=== PATIENT | male | born 1965 | race Hispanic/Latino ===

== ENCOUNTER 2022-09-04 17:39 | Emergency (ER) | payer OTHER ==
--- OUTSIDE RECORDS SUMMARY | 2022-09-04 17:47 | XMS REPORT | Continuity of Care Document ---
:1965 Author Organization [facility] t Address [address] [facility]. [address] [place] [address] Support Name Relationship Address Phone Prashatnh Land Sibling [address] [place] [address] L Aminata Land Sibling [address] [facility] [place] [phone] [place] [address] AMINATA LAND L G [address] [facility] [place] [address] Care Team Providers Name Role Phone Meliton So MD Primary Care Physician DR KITTY VALDOVINOS Attending Clinician Unavailable [email or web address] Attending Clinician Unavailable Meliton So MD Attending Clinician MELITON SO Attending Clinician Unavailable Doctor Unassigned, Pierz Attending Clinician Unavailable Mat Garcia MD Attending Clinician Tiera Aguilar NP Attending Clinician DIXON IRELAND Attending Clinician Unavailable Cecil RIZO Attending Clinician Unavailable Cecil Colleir Attending Clinician LADAN OZUNA Attending Clinician Unavailable Ladan Ozuna MD Attending Clinician [facility] Spec Procedure Attending Clinician Unavailable KENYON ARANA Attending Clinician Unavailable Kenyon Arana MD Attending Clinician , Adc Lab Attending Clinician Unavailable Dixon Ireland MD Attending Clinician RENAE MCKEON Attending Clinician Unavailable MELISSA DAVIS Attending Clinician Unavailable MELISSA DAVIS Attending Clinician Unavailable PRIYA ARAUJO Attending Clinician Unavailable CONSTANTIN CARTER Attending Clinician Unavailable MORALES LANE Attending Clinician Unavailable STEF MOORE Attending Clinician Unavailable CONSTANTIN CARTER Admitting Clinician Unavailable DR KITTY VALDOVINOS Admitting Clinician Unavailable [email or web address] Admitting Clinician Unavailable Cecil RIZO Admitting Clinician Unavailable KENYON ARANA Admitting Clinician Unavailable MORALES LANE Admitting Clinician Unavailable PRIYA ARAUJO Admitting Clinician Unavailable Payers Payer Name Policy Type Policy Number Effective Date Expiration Date Queenie benz [place] [id number] 2019 00:00:00 [place] [id number] 2018 (PPO) 00:00:00 Problems Condition Condition Condition Status Onset Resolution Last Treating Co mments Source Name Details Category Date Date Treatment Clinician Date Chronic Chronic Disease Active Univers pain of pain of 8-10 [place] [facility] 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 4-29 ity of 00:00: [address] NSTEMI NSTEMI Disease Active Univers (non-ST (non-ST 4-29 ity of elevated elevated 00:00: [place] myocardial myocardial 00 Me dical infarction infarction Br anch ) ) Facial Facial Disease Active Univers laceration laceration 4-29 it y of , initial , initial 00:00: [place] s encounter encounter 00 [facility] Financial Financial Disease Active Uni vers difficulti difficulti 7-24 it y of es es 00:00: [address] Branch Syncope, Syncope, Disease Active Unive rs unspecifie unspecifie 7-24 it y of d syncope d [place] Intermitte Intermitte Disease Active 2019- U nivers nt nt 7-17 ity of proptosis[place], [place] Breakthrou Breakthrou Disease Active 2019- U nivers gh seizure gh seizure 7-07 it y of 00:00: [address] Need for Need for Disease Active Unive rs Tdap Tdap 6-10 ity of vaccinatio vaccinatio [place] Medical [place] Mixed Mixed Disease Active Univers dyslipidem dyslipidem 3-19 it y of ia ia 00:00: [place] [facility] Proptosis Proptosis Disease Active Uni vers due to due to 3-17 ity of thyroid thyroid 00:00: [place] disorder disorder 00 Medica l Branch 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 3-17 ity of 00:00: [place] [facility] Pre-operat Pre-operat Disease Active U nivers lainey lainey 3-17 ity of clearance clearance 00:[place] Bradycardi Bradycardi Disease Active U nivers a a 3-17 ity of 00:00: [place] [facility] Prediabete Prediabete Disease Active 2014-05 U nivers s s 2-22 ity of 00:00: [place] [facility] Postablati Postablati Disease Active 2014-05 U nivers ve ve 2-22 ity of hypothyroi hypothyroi 00:[place] dism 00 Medical Branch Pure Pure Disease Active Univers hyperglyce hyperglyce 4-28 it y of ridemia ridemia 00:00: [place] 00 [facility] Allergies, Adverse Reactions, Alerts Allergy Allergy Status Severity Reaction(s) Onset Inactive Treating Comm ents Source Name Type Date Date Clinician NO KNOWN Drug Active Univers ALLERGIE Class ity of S [place] [facility] Social History Social Habit Start Date Stop Date Quantity Comments Source Exposure to Not sure [facility] SARS-CoV-2 (event) [place] [facility] Gender identity [facility]danism [facility] Sexual orientation Method t Hospital Alcohol intake 2022-01-31 2022-01-31 0 /d University of 00:00:00 00:00:00 [place] [facility] Tobacco use and 2022-01-30 2022-01-30 Smokeless Universit y of exposure 00:00:00 00:00:00 tobacco non-user [facility] Sex Ass[birth year] At [birth year] Y[facility]danism 00:00:00 00:00:00 Hospital Smoking Status Start Date Stop Date Source Never Smoker [facility] Tobacco smoking consumption unknown [facility] Medications Ordered Filled Start Stop Current Ordering Indication Dosage Frequency Signature Comments Components Source Medication Medication Date Date Medication? Clinician (SIG) Name Name LEVETIRACET Yes [id number] TAKE 1 Univers AM 1,000 mg 4-03 TABLET BY ity of tablet 00:00: MOUTH IN [place] [address] [facility] MORNING Branch AND IN THE EVENING LEVETIRACET Yes [id number] TAKE 1 Univers AM 1,000 mg 3-07 TABLET BY ity of tablet 00:00: MOUTH IN [place] 00 THE [facility] MORNING Branch AND IN THE EVENING LEVETIRACET Yes [id number] TAKE 1 Univers AM 1,000 mg 3-07 TABLET BY ity of tablet 00:00: MOUTH IN [place] [address] THE [facility] MORNING Branch AND IN THE EVENING LEVOTHYROXI Yes [id number] TAKE 1 Univers NE 200 mcg 3-07 TABLET BY ity of tablet 00:00: MOUTH ONCE [place] 00 DAILY IN [facility] MORNING ATORVASTATI 0 Yes [id number] 40mg TAKE 1 Univers N 40 mg 3-07 TABLET BY ity of tablet 00:00: MOUTH AT [place] [address] BEDTIME [facility] LEVOTHYROXI 0 Yes [id number] TAKE 1 Univers NE 200 mcg 3-07 TABLET BY ity of tablet 00:00: MOUTH ONCE [place] 00 DAILY IN [facility] MORNING ATORVASTATI 0 Yes [id number] 40mg TAKE 1 Univers N 40 mg 3-07 TABLET BY ity of tablet 00:00: MOUTH AT [place] [address] BEDTIME [facility] LEVETIRACET 0 2022- No [id number] TAKE 1 Univers AM 1,000 mg 3-07 04-03 TABLET BY it y of tablet 00:00: 00:00 MOUTH IN [place] 00 :00 THE [facility] MORNING Branch AND IN THE EVENING LEVETIRACET Yes [id number] TAKE 1 Univers AM 1,000 mg 2-06 TABLET BY ity of tablet 00:00: MOUTH IN [place] 00 THE [facility] MORNING Branch AND 1 IN THE EVENING LEVETIRACET 0 2022- No [id number] TAKE 1 Univers AM 1,000 mg 2-06 03-07 TABLET BY it y of tablet 00:00: 00:00 MOUTH IN [place] 00 :00 THE [facility] MORNING Branch AND 1 IN THE EVENING levothyroxi Yes [id number] 200ug Take 1 Univers ne 200 mcg 9-21 tablet by ity of tablet 00:00: mouth [place] 00 every Medical morning. Branch atorvastati 2021-0 Yes [id number] 40mg Take 1 Univers n 40 mg 9-21 tablet by ity of tablet 00:00: mouth at [place] 00 bedtime. Medical Branch levothyroxi 2021-0 Yes [id number] 200ug Take 1 Univers ne 200 mcg 9-21 tablet by ity of tablet 00:00: mouth [place] 00 every Medical morning. Branch atorvastati 2021-0 Yes [id number] 40mg Take 1 Univers n 40 mg 9-21 tablet by ity of tablet 00:00: mouth at [place] 00 bedtime. Medical Branch levothyroxi 2021-0 Yes [id number] 200ug Take 1 Univers ne 200 mcg 9-21 tablet by ity of tablet 00:00: mouth [place] 00 every Medical morning. Branch atorvastati 0 Yes [id number] 40mg Take 1 Univers n 40 mg 9-21 tablet by ity of tablet 00:00: mouth at [place] [address] bedtime. Medical Branch levothyroxi 2021-0 Yes [id number] 200ug Take 1 Univers ne 200 mcg 9-21 tablet by ity of tablet 00:00: mouth [place] 00 every Medical morning. Branch atorvastati 0 Yes [id number] 40mg Take 1 Univers n 40 mg 9-21 tablet by ity of tablet 00:00: mouth at [place] 00 bedtime. Medical Branch levothyroxi 2021-0 2022- No [id number] 200ug Take 1 Univers ne 200 mcg 9-21 03-07 tablet by ity of tablet 00:00: 00:00 mouth [place] 00 :00 every Medical morning. Branch atorvastati 2021-0 2022- No [id number] 40mg Take 1 Univers n 40 mg 9-21 03-07 tablet by ity of tablet 00:00: 00:00 mouth at [place] 00 :00 bedtime. Medical Branch levETIRAcet 2021-0 Yes [id number] 1000mg Take 1 Univers am 1,000 mg 8-16 tablet by ity of tablet 00:00: mouth in [place] 00 the Medical morning Branch and 1 tablet in the evening. levETIRAcet 2021-0 Yes [id number] 1000mg Take 1 Univers am 1,000 mg 8-16 tablet by ity of tablet 00:00: mouth in [place] 00 the Medical morning Branch and 1 tablet in the evening. levETIRAcet 2021-0 Yes [id number] 1000mg Take 1 Univers am 1,000 mg 8-16 tablet by ity of tablet 00:00: mouth in [place] 00 the Medical morning Branch and 1 tablet in the evening. levETIRAcet 2021-0 Yes [id number] 1000mg Take 1 Univers am 1,000 mg 8-16 tablet by ity of tablet 00:00: mouth in [place] 00 the Medical morning Branch and 1 tablet in the evening. levETIRAcet 2021-0 Yes [id number] 1000mg Take 1 Univers am 1,000 mg 8-16 tablet by ity of tablet 00:00: mouth in [place] 00 the Medical morning Branch and 1 tablet in the evening. levETIRAcet 2021-0 2023- No [id number] 1000mg Take 1 Univers am 1,000 mg 8-16 02-06 tablet by it y of tablet 00:00: 00:00 mouth in [place] 00 :00 the Medical morning Branch and 1 tablet in the evening. LEVETIRACET 2021-0 Yes [id number] Take 1 Univers AM 1,000 mg 7-15 tablet by ity of tablet 00:00: mouth [place] 00 twice Medical daily Branch LEVETIRACET 2021-0 Yes [id number] Take 1 Univers AM 1,000 mg 7-15 tablet by ity of tablet 00:00: mouth [place] 00 twice Medical daily Branch LEVETIRACET 2-0 2022- No [id number] Take 1 Univers AM 1,000 mg 7-15 08-16 tablet by it y of tablet 00:00: 00:00 mouth [place] 00 :00 twice Medical daily Branch LEVOTHYROXI 2-0 Yes [id number] TAKE 1 Univers NE 200 mcg 6-23 TABLET BY ity of tablet 00:00: MOUTH IN [place] 00 THE Medical MORNING Branch LEVOTHYROXI 2021-0 Yes [id number] TAKE 1 Univers NE 200 mcg 6-23 TABLET BY ity of tablet 00:00: MOUTH IN [place] 00 THE Medical MORNING Branch LEVOTHYROXI 2021-0 Yes [id number] TAKE 1 Univers NE 200 mcg 6-23 TABLET BY ity of tablet 00:00: MOUTH IN [place] 00 THE Medical MORNING Branch LEVOTHYROXI 2021-0 Yes [id number] TAKE 1 Univers NE 200 mcg 6-23 TABLET BY ity of tablet 00:00: MOUTH IN [place] 00 THE Medical MORNING Branch LEVOTHYROXI 0 Yes [id number] TAKE 1 Univers NE 200 mcg 6-23 TABLET BY ity of tablet 00:00: MOUTH IN [place] 00 THE Medical MORNING Branch LEVOTHYROXI 0 Yes [id number] TAKE 1 Univers NE 200 mcg 6-23 TABLET BY ity of tablet 00:00: MOUTH IN [place] 00 THE Medical MORNING Branch LEVOTHYROXI Yes [id number] TAKE 1 Univers NE 200 mcg 6-23 TABLET BY ity of tablet 00:00: MOUTH IN [place] 00 THE Medical MORNING Branch LEVOTHYROXI 2021-0 2021- No [id number] TAKE 1 Univers NE 200 mcg 6-23 09-21 TABLET BY ity of tablet 00:00: 00:00 MOUTH IN [place] 00 :00 THE Medical MORNING Branch LEVOTHYROXI 2021-0 2021- No [id number] TAKE 1 Univers NE 200 mcg 6-23 09-21 TABLET BY ity of tablet 00:00: 00:00 MOUTH IN [place] 00 :00 THE Medical MORNING Branch LEVETIRACET Yes [id number] Take 1 Univers AM 1,000 mg 6-16 tablet by ity of tablet 00:00: mouth [place] twice Medical daily Branch LEVETIRACET Yes [id number] Take 1 Univers AM 1,000 mg 6-16 tablet by ity of tablet 00:00: mouth [place] 00 twice Medical daily Branch LEVETIRACET 2021-0 2021- No [id number] Take 1 Univers AM 1,000 mg 6-16 07-15 tablet by it y of tablet 00:00: 00:00 [facility] 00 :00 twice Medical daily Branch predniSONE 2021-0 2021- No 2 tablets M ethodi (DELTASONE) 4-29 05-[address] 10 mg 00:00: 04:59 daily, 1 [facility]osp[facility] tablet 00 :00 tablet l daily for 1 wk, then stop LEVETIRACET Yes [id number] Take 1 Univers AM 1,000 mg 4-18 tablet by ity of tablet 00:00: mouth [place] [address] twice Medical daily Branch LEVETIRACET Yes [id number] Take 1 Univers AM 1,000 mg 4-18 tablet by ity of tablet 00:00: mouth [place] 00 twice Medical daily Branch levETIRAcet Yes 1{tbl} Q.5D Take 1 Me thodi am (KEPPRA) 4-[address] 1000 MG 00:00: mouth 2 [facility]osp[facility] tablet 00 (two) l times a day. LEVETIRACET 2021- No [id number] Take 1 Univers AM 1,000 mg 4-18 06-16 tablet by it y of tablet 00:00: 00:00 mouth [place] 00 :00 twice Medical daily Branch LEVETIRACET 2021- No [id number] Take 1 Univers AM 1,000 mg 4-18 04-18 tablet by it y of tablet 00:00: 00:00 mouth [place] 00 :00 twice Medical daily Branch levothyroxi Yes 200ug QD Take 200 M ethodi ne 3-[address] (SYNTHROID) 00:00: mouth [facility] 200 mcg 00 every l tablet morning. LEVETIRACET Yes [id number] 1000mg TAKE 1 Univers AM 1,000 mg 2-02 TABLET BY ity of tablet 00:00: MOUTH 2 [place] 00 (TWO) Medical TIMES Branch DAILY. LEVETIRACET 2021- No [id number] 1000mg TAKE 1 Univers AM 1,000 mg 2-02 04-18 TABLET BY it y of tablet 00:00: 00:00 MOUTH 2 [place] 00 :00 (TWO) Medical TIMES Branch DAILY. sulfamethox 2020-05 Yes [id number] 1{tbl} Take 1 Univers azole-trime 1-04 tablet by ity of thoprim 00:00: mouth 2 [place] (BACTRIM 00 (two) Medical DS) 800-160 times Branch mg per daily. tablet sulfamethox 2020-05 Yes [id number] 1{tbl} Take 1 Univers azole-trime 1-04 tablet by ity of thoprim 00:00: mouth 2 [place] (BACTRIM 00 (two) Medical DS) 800-160 times Branch mg per daily. tablet sulfamethox 2020-05 Yes [id number] 1{tbl} Take 1 Univers azole-trime 1-04 tablet by ity of thoprim 00:00: mouth 2 [place] (BACTRIM 00 (two) Medical DS) 800-160 times Branch mg per daily. tablet sulfamethox 2020-05 Yes [id number] 1{tbl} Take 1 Univers azole-trime 1-04 tablet by ity of thoprim 00:00: mouth 2 [place] (BACTRIM 00 (two) Medical DS) 800-160 times Branch mg per daily. tablet sulfamethox 2020-05 Yes [id number] 1{tbl} Take 1 Univers azole-trime 1-04 tablet by ity of thoprim 00:00: mouth 2 [place] (BACTRIM 00 (two) Medical DS) 800-160 times Branch mg per daily. tablet sulfamethox 2020-05 Yes [id number] 1{tbl} Take 1 Univers azole-trime 1-04 tablet by ity of thoprim 00:00: mouth 2 [place] (BACTRIM 00 (two) Medical DS) 800-160 times Branch mg per daily. tablet sulfamethox 2020-05 Yes [id number] 1{tbl} Take 1 Univers azole-trime 1-04 tablet by ity of thoprim 00:00: mouth 2 [place] (BACTRIM 00 (two) Medical DS) 800-160 times Branch mg per daily. tablet sulfamethox 2020-05 Yes [id number] 1{tbl} Take 1 Univers azole-trime 1-04 tablet by ity of thoprim 00:00: mouth 2 [place] (BACTRIM 00 (two) Medical DS) 800-160 times Branch mg per daily. tablet sulfamethox 2020-05 Yes [id number] 1{tbl} Take 1 Univers azole-trime 1-04 tablet by ity of thoprim 00:00: mouth 2 [place] (BACTRIM 00 (two) Medical DS) 800-160 times Branch mg per daily. tablet sulfamethox 2020-05 Yes [id number] 1{tbl} Take 1 Univers azole-trime 1-04 tablet by ity of thoprim 00:00: mouth 2 [place] (BACTRIM 00 (two) Medical DS) 800-160 times Branch mg per daily. tablet sulfamethox 2020-05 Yes [id number] 1{tbl} Take 1 Univers azole-trime 1-04 tablet by ity of thoprim 00:00: mouth 2 [place] (BACTRIM 00 (two) Medical DS) 800-160 times Branch mg per daily. tablet sulfamethox 2020-05 Yes [id number] 1{tbl} Take 1 Univers azole-trime 1-04 tablet by ity of thoprim 00:00: mouth 2 [place] (BACTRIM 00 (two) Medical DS) 800-160 times Branch mg per daily. tablet sulfamethox 2020-05 Yes [id number] 1{tbl} Take 1 Univers azole-trime 1-04 tablet by ity of thoprim 00:00: mouth 2 [place] (BACTRIM 00 (two) Medical DS) 800-160 times Branch mg per daily. tablet sulfamethox 2020-05 Yes [id number] 1{tbl} Take 1 Univers azole-trime 1-04 tablet by ity of thoprim 00:00: mouth 2 [place] (BACTRIM 00 (two) Medical DS) 800-160 times Branch mg per daily. tablet sulfamethox 2020-05 Yes [id number] 1{tbl} Take 1 Univers azole-trime 1-04 tablet by ity of thoprim 00:00: mouth 2 [place] (BACTRIM 00 (two) Medical DS) 800-160 times Branch mg per daily. tablet sulfamethox 2020-05 Yes [id number] 1{tbl} Take 1 Univers azole-trime 1-04 tablet by ity of thoprim 00:00: mouth 2 [place] (BACTRIM 00 (two) Medical DS) 800-160 times Branch mg per daily. tablet sulfamethox 2020-05 Yes [id number] 1{tbl} Take 1 Univers azole-trime 1-04 tablet by ity of thoprim 00:00: mouth 2 [place] (BACTRIM 00 (two) Medical DS) 800-160 times Branch mg per daily. tablet sulfamethox 2020-05 Yes [id number] 1{tbl} Take 1 Univers azole-trime 1-04 tablet by ity of thoprim 00:00: mouth 2 [place] (BACTRIM 00 (two) Medical DS) 800-160 times Branch mg per daily. tablet sulfamethox 2020-05 Yes [id number] 1{tbl} Take 1 Univers azole-trime 1-04 tablet by ity of thoprim 00:00: mouth 2 [place] (BACTRIM 00 (two) Medical DS) 800-160 times Branch mg per daily. tablet sulfamethox 2020-05 Yes [id number] 1{tbl} Take 1 Univers azole-trime 1-04 tablet by ity of thoprim 00:00: mouth 2 [place] (BACTRIM 00 (two) Medical DS) 800-160 times Branch mg per daily. tablet sulfamethox 2020-05 Yes [id number] 1{tbl} Take 1 Univers azole-trime 1-04 tablet by ity of thoprim 00:00: mouth 2 [place] (BACTRIM 00 (two) Medical DS) 800-160 times Branch mg per daily. tablet traMADoL 50 2020-05 Yes [id number] 50mg Take 1 Univ ers mg tablet 1-03 tablet by ity o f 00:00: mouth [place] 00 every 6 Medical (six) Branch hours as needed for Pain (scale 4-6). Indication s: acute pain traMADoL 50 2020-05 Yes [id number] 50mg Take 1 Univ ers mg tablet 1-03 tablet by ity o f 00:00: mouth [place] 00 every 6 Medical (six) Branch hours as needed for Pain (scale 4-6). Indication s: acute pain traMADoL 50 2020-05 Yes [id number] 50mg Take 1 Univ ers mg tablet 1-03 tablet by ity o f 00:00: mouth [place] 00 every 6 Medical (six) Branch hours as needed for Pain (scale 4-6). Indication s: acute pain traMADoL 50 2020-05 Yes [id number] 50mg Take 1 Univ ers mg tablet 1-03 tablet by ity o f 00:00: mouth [place] 00 every 6 Medical (six) Branch hours as needed for Pain (scale 4-6). Indication s: acute pain traMADoL 50 2020-05 Yes [id number] 50mg Take 1 Univ ers mg tablet 1-03 tablet by ity o f 00:00: mouth [place] 00 every 6 Medical (six) Branch hours as needed for Pain (scale 4-6). Indication s: acute pain traMADoL 50 2020-05 Yes [id number] 50mg Take 1 Univ ers mg tablet 1-03 tablet by ity o f 00:00: mouth [place] 00 every 6 Medical (six) Branch hours as needed for Pain (scale 4-6). Indication s: acute pain traMADoL 50 2020-05 Yes [id number] 50mg Take 1 Univ ers mg tablet 1-03 tablet by ity o f 00:00: mouth [place] 00 every 6 Medical (six) Branch hours as needed for Pain (scale 4-6). Indication s: acute pain traMADoL 50 2020-05 Yes [id number] 50mg Take 1 Univ ers mg tablet 1-03 tablet by ity o f 00:00: mouth [place] 00 every 6 Medical (six) Branch hours as needed for Pain (scale 4-6). Indication s: acute pain traMADoL 50 2020-05 Yes [id number] 50mg Take 1 Univ ers mg tablet 1-03 tablet by ity o f 00:00: mouth [place] 00 every 6 Medical (six) Branch hours as needed for Pain (scale 4-6). Indication s: acute pain traMADoL 50 2020-05 Yes [id number] 50mg Take 1 Univ ers mg tablet 1-03 tablet by ity o f 00:00: mouth [place] 00 every 6 Medical (six) Branch hours as needed for Pain (scale 4-6). Indication s: acute pain traMADoL 50 2020-05 Yes [id number] 50mg Take 1 Univ ers mg tablet 1-03 tablet by ity o f 00:00: mouth [place] 00 every 6 Medical (six) Branch hours as needed for Pain (scale 4-6). Indication s: acute pain traMADoL 50 2020-05 Yes [id number] 50mg Take 1 Univ ers mg tablet 1-03 tablet by ity o f 00:00: mouth [place] 00 every 6 Medical (six) Branch hours as needed for Pain (scale 4-6). Indication s: acute pain traMADoL 50 2020-05 Yes [id number] 50mg Take 1 Univ ers mg tablet 1-03 tablet by ity o f 00:00: mouth [place] 00 every 6 Medical (six) Branch hours as needed for Pain (scale 4-6). Indication s: acute pain traMADoL 50 2020-05 Yes [id number] 50mg Take 1 Univ ers mg tablet 1-03 tablet by ity o f 00:00: mouth [place] 00 every 6 Medical (six) Branch hours as needed for Pain (scale 4-6). Indication s: acute pain traMADoL 50 2020-05 Yes [id number] 50mg Take 1 Univ ers mg tablet 1-03 tablet by ity o f 00:00: mouth [place] 00 every 6 Medical (six) Branch hours as needed for Pain (scale 4-6). Indication s: acute pain traMADoL 50 2020-05 Yes [id number] 50mg Take 1 Univ ers mg tablet 1-03 tablet by ity o f 00:00: mouth [place] 00 every 6 Medical (six) Branch hours as needed for Pain (scale 4-6). Indication s: acute pain traMADoL 50 2020-05 Yes [id number] 50mg Take 1 Univ ers mg tablet 1-03 tablet by ity o f 00:00: mouth [place] 00 every 6 Medical (six) Branch hours as needed for Pain (scale 4-6). Indication s: acute pain traMADoL 50 2020-05 Yes [id number] 50mg Take 1 Univ ers mg tablet 1-03 tablet by ity o f 00:00: mouth [place] 00 every 6 Medical (six) Branch hours as needed for Pain (scale 4-6). Indication s: acute pain traMADoL 50 2020-05 Yes [id number] 50mg Take 1 Univ ers mg tablet 1-03 tablet by ity o f 00:00: mouth [place] 00 every 6 Medical (six) Branch hours as needed for Pain (scale 4-6). Indication s: acute pain traMADoL 50 2020-05 Yes [id number] 50mg Take 1 Univ ers mg tablet 1-03 tablet by ity o f 00:00: mouth [place] 00 every 6 Medical (six) Branch hours as needed for Pain (scale 4-6). Indication s: acute pain traMADoL 50 2020-05 Yes [id number] 50mg Take 1 Univ ers mg tablet 1-03 tablet by ity o f 00:00: mouth [place] 00 every 6 Medical (six) Branch hours as needed for Pain (scale 4-6). Indication s: acute pain ibuprofen 2020-05 Yes [id number] 600mg Take 1 U nivers 600 mg 0-29 tablet by ity of tablet 00:00: mouth [place] 00 every 6 Medical (six) Branch hours as needed for Pain (scale 4-6). mupirocin 2 2020-05 Yes [id number] Apply to Univers % ointment 0-29 area(s) 3 ity of 00:00: (three) [place] 00 times Medical daily. Branch ibuprofen 2020-05 Yes [id number] 600mg Take 1 U nivers 600 mg 0-29 tablet by ity of tablet 00:00: mouth [place] 00 every 6 Medical (six) Branch hours as needed for Pain (scale 4-6). mupirocin 2 2020-05 Yes [id number] Apply to Univers % ointment 0-29 area(s) 3 ity of 00:00: (three) [place] 00 times Medical daily. Branch ibuprofen 2020-05 Yes [id number] 600mg Take 1 U nivers 600 mg 0-29 tablet by ity of tablet 00:00: mouth [place] 00 every 6 Medical (six) Branch hours as needed for Pain (scale 4-6). mupirocin 2 2020-05 Yes [id number] Apply to Univers % ointment 0-29 area(s) 3 ity of 00:00: (three) [place] 00 times Medical daily. Branch ibuprofen 2020-05 Yes [id number] 600mg Take 1 U nivers 600 mg 0-29 tablet by ity of tablet 00:00: mouth [place] 00 every 6 Medical (six) Branch hours as needed for Pain (scale 4-6). mupirocin 2 2020-05 Yes [id number] Apply to Univers % ointment 0-29 area(s) 3 ity of 00:00: (three) [place] 00 times Medical daily. Branch ibuprofen 2020-05 Yes [id number] 600mg Take 1 U nivers 600 mg 0-29 tablet by ity of tablet 00:00: mouth [place] 00 every 6 Medical (six) Branch hours as needed for Pain (scale 4-6). mupirocin 2 2020-05 Yes [id number] Apply to Univers % ointment 0-29 area(s) 3 ity of 00:00: (three) [place] 00 times Medical daily. Branch ibuprofen 2020-05 Yes [id number] 600mg Take 1 U nivers 600 mg 0-29 tablet by ity of tablet 00:00: mouth [place] 00 every 6 Medical (six) Branch hours as needed for Pain (scale 4-6). mupirocin 2 2020-05 Yes [id number] Apply to Univers % ointment 0-29 area(s) 3 ity of 00:00: (three) [place] 00 times Medical daily. Branch ibuprofen 2020-05 Yes [id number] 600mg Take 1 U nivers 600 mg 0-29 tablet by ity of tablet 00:00: mouth [place] 00 every 6 Medical (six) Branch hours as needed for Pain (scale 4-6). mupirocin 2 2020-05 Yes [id number] Apply to Univers % ointment 0-29 area(s) 3 ity of 00:00: (three) [place] 00 times Medical daily. Branch ibuprofen 2020-05 Yes [id number] 600mg Take 1 U nivers 600 mg 0-29 tablet by ity of tablet 00:00: mouth [place] 00 every 6 Medical (six) Branch hours as needed for Pain (scale 4-6). mupirocin 2 2020-05 Yes [id number] Apply to [facility] % ointment 0-29 area(s) 3 ity of 00:00: (three) [place] 00 times Medical daily. Branch ibuprofen 2020-05 Yes [id number] 600mg Take 1 [facility] n[facility] 600 mg 0-29 tablet by [facility] of tablet 00:00: mouth [place] 00 every 6 Medical (six) Branch hours as needed for Pain (scale 4-6). mupirocin 2 2020-05 Yes [id number] Apply to [facility] % ointment 0-29 area(s) 3 ity of 00:00: (three) [place] 00 times Medical daily. Branch ibuprofen 2020-05 Yes [id number] 600mg Take 1 [facility] n[facility] 600 mg 0-29 tablet by [facility] of tablet 00:00: mouth [place] 00 every 6 Medical (six) Branch hours as needed for Pain (scale 4-6). mupirocin 2 2020-05 Yes [id number] Apply to [facility] % ointment 0-29 area(s) 3 ity of 00:00: (three) [place] 00 times Medical daily. Branch ibuprofen 2020-05 Yes [id number] 600mg Take 1 [facility] 600 mg 0-29 tablet by [facility] of tablet 00:00: mouth [place] 00 every 6 Medical (six) Branch hours as needed for Pain (scale 4-6). mupirocin 2 2020-05 Yes [id number] Apply to [facility] % ointment 0-29 area(s) 3 ity of 00:00: (three) [place] 00 times Medical daily. Branch ibuprofen 2020-05 Yes [id number] 600mg Take 1 [facility] 600 mg 0-29 tablet by [facility] of tablet 00:00: mouth [place] 00 every 6 Medical (six) Branch hours as needed for Pain (scale 4-6). mupirocin 2 2020-05 Yes [id number] Apply to [facility] % ointment 0-29 area(s) 3 ity of 00:00: (three) [place] 00 times Medical daily. Branch ibuprofen 2020-05 Yes [id number] 600mg Take 1 [facility] 600 mg 0-29 tablet by [facility] of tablet 00:00: mouth [place] 00 every 6 Medical (six) Branch hours as needed for Pain (scale 4-6). mupirocin 2 2020-05 Yes [id number] Apply to [facility] % ointment 0-29 area(s) 3 ity of 00:00: (three) [place] 00 times Medical daily. Branch ibuprofen 2020-05 Yes [id number] 600mg Take 1 [facility] 600 mg 0-29 tablet by [facility] of tablet 00:00: mouth [place] 00 every 6 Medical (six) Branch hours as needed for Pain (scale 4-6). mupirocin 2 2020-05 Yes [id number] Apply to [facility] % ointment 0-29 area(s) 3 ity of 00:00: (three) [place] 00 times Medical daily. Branch ibuprofen 2020-05 Yes [id number] 600mg Take 1 [facility] 600 mg 0-29 tablet by [facility] of tablet 00:00: mouth [place] 00 every 6 Medical (six) Branch hours as needed for Pain (scale 4-6). mupirocin 2 2020-05 Yes [id number] Apply to [facility] % ointment 0-29 area(s) 3 ity of 00:00: (three) [place] 00 times Medical daily. Branch ibuprofen 2020-05 Yes [id number] 600mg Take 1 [facility] 600 mg 0-29 tablet by [facility] of tablet 00:00: mouth [place] 00 every 6 Medical (six) Branch hours as needed for Pain (scale 4-6). mupirocin 2 2020-05 Yes [id number] Apply to [facility] % ointment 0-29 area(s) 3 ity of 00:00: (three) [place] 00 times Medical daily. Branch ibuprofen 2020-05 Yes [id number] 600mg Take 1 [facility] 600 mg 0-29 tablet by [facility] of tablet 00:00: mouth [place] 00 every 6 Medical (six) Branch hours as needed for Pain (scale 4-6). mupirocin 2 2020-05 Yes [id number] Apply to [facility] % ointment 0-29 area(s) 3 ity of 00:00: (three) [place] 00 times Medical daily. Branch ibuprofen 2020-05 Yes [id number] 600mg Take 1 [facility] 600 mg 0-29 tablet by [facility] of tablet 00:00: mouth [place] 00 every 6 Medical (six) Branch hours as needed for Pain (scale 4-6). mupirocin 2 2020-05 Yes [id number] Apply to [facility] % ointment 0-29 area(s) 3 ity of 00:00: (three) [place] 00 times Medical daily. Branch ibuprofen 2020-05 Yes [id number] 600mg Take 1 [facility] 600 mg 0-29 tablet by [facility] of tablet 00:00: mouth [place] 00 every 6 Medical (six) Branch hours as needed for Pain (scale 4-6). mupirocin 2 2020-05 Yes [id number] Apply to [facility] % ointment 0-29 area(s) 3 ity of 00:00: (three) [place] 00 times Medical daily. Branch ibuprofen 2020-05 Yes [id number] 600mg Take 1 [facility] 600 mg 0-29 tablet by [facility] of tablet 00:00: mouth [place] 00 every 6 Medical (six) Branch hours as needed for Pain (scale 4-6). mupirocin 2 2020-05 Yes [id number] Apply to [facility] % ointment 0-29 area(s) 3 ity of 00:00: (three) [place] 00 times Medical daily. Branch ibuprofen 2020-05 Yes [id number] 600mg Take 1 [facility] 600 mg 0-29 tablet by [facility] of tablet 00:00: mouth [place] 00 every 6 Medical (six) Branch hours as needed for Pain (scale 4-6). mupirocin 2 2020-05 Yes [id number] Apply to [facility] % ointment 0-29 area(s) 3 ity of 00:00: (three) [place] 00 times Medical daily. Branch atorvastati Yes [id number] 80mg Take 1 [facility] n 80 mg 8-10 tablet by [facility] of tablet 00:00: mouth at [place] 00 bedtime. Medical Branch clopidogreL Yes [id number] 75mg Take 1 [facility] 75 mg 8-10 tablet by [facility] of tablet 00:00: mouth [place] 00 daily. Medical Branch Leg Brace 2020-0 Yes [id number] M25.562: [facility] (TAY KNEE 8-10 [employer] to ity of BRACE) Misc 00:00: affected [place] 00 knee daily Medical Branch Diclofenac 2020-0 Yes [id number] Apply to [facility] Sodium 8-10 area(s) 4 ity of (VOLTAREN) 00:00: (four) [place] 1 % gel 00 times Medical daily. Branch Apply 4 g qid atorvastati 2020-0 Yes [id number] 80mg Take 1 [facility] n 80 mg 8-10 tablet by ity of tablet 00:00: mouth at [place] 00 bedtime. Medical Branch clopidogreL 2020-0 Yes [id number] 75mg Take 1 [facility] 75 mg 8-10 tablet by it[facility] of tablet 00:00: mouth [place] 00 daily. Medical Branch Leg Brace 0 Yes [id number] M25.562: [facility] (TAY KNEE 8-10 [employer] to ity of BRACE) Misc 00:00: affected [place] 00 knee daily Medical Branch Diclofenac 2020-0 Yes [id number] Apply to [facility] Sodium 8-10 area(s) 4 ity of (VOLTAREN) 00:00: (four) [place] 1 % gel 00 times Medical daily. Branch Apply 4 g qid atorvastati 2020-0 Yes [id number] 80mg Take 1 [facility] n 80 mg 8-10 tablet by ity of tablet 00:00: mouth at [place] 00 bedtime. Medical Branch clopidogreL 2020-0 Yes [id number] 75mg Take 1 [facility] 75 mg 8-10 tablet by [facility]y of tablet 00:00: mouth [place] 00 daily. Medical Branch Leg Brace 2020-0 Yes [id number] M25.562: [facility] (TAY KNEE 8-10 [employer] to ity of BRACE) Misc 00:00: affected [place] 00 knee daily Medical Branch Diclofenac 2020-0 Yes [id number] Apply to [facility] Sodium 8-10 area(s) 4 ity of (VOLTAREN) 00:00: (four) [place] 1 % gel 00 times Medical daily. Branch Apply 4 g qid atorvastati 2020-0 Yes [id number] 80mg Take 1 [facility] n 80 mg 8-10 tablet by ity of tablet 00:00: mouth at [place] 00 bedtime. Medical Branch clopidogreL 2020-0 Yes [id number] 75mg Take 1 [facility] 75 mg 8-10 tablet by ity of tablet 00:00: mouth [place] 00 daily. Medical Branch Leg Brace 2020-0 Yes [id number] M25.562: [facility] (TAY KNEE 8-10 [employer] to ity of BRACE) Misc 00:00: affected [place] 00 knee daily Medical Branch Diclofenac 2020-0 Yes [id number] Apply to [facility] Sodium 8-10 area(s) 4 ity of (VOLTAREN) 00:00: (four) [place] 1 % gel 00 times Medical daily. Branch Apply 4 g qid clopidogreL 2020-0 Yes [id number] 75mg Take 1 [facility] 75 mg 8-10 tablet by ity of tablet 00:00: mouth [place] 00 daily. Medical Branch Leg Brace 0 Yes [id number] M25.562: [facility] (TAY KNEE 8-10 [employer] to ity of BRACE) Misc 00:00: affected [place] 00 knee daily Medical Branch Diclofenac 2020-0 Yes [id number] Apply to [facility] Sodium 8-10 area(s) 4 ity of (VOLTAREN) 00:00: (four) [place] 1 % gel 00 times Medical daily. Branch Apply 4 g qid clopidogreL 2020-0 Yes [id number] 75mg Take 1 [facility] 75 mg 8-10 tablet by ity of tablet 00:00: mouth [place] 00 daily. Medical Branch Leg Brace 0 Yes [id number] M25.562: [facility] (TAY KNEE 8-10 [employer] to ity of BRACE) Misc 00:00: affected [place] 00 knee daily Medical Branch Diclofenac 2020-0 Yes [id number] Apply to [facility] Sodium 8-10 area(s) 4 ity of (VOLTAREN) 00:00: (four) [place] 1 % gel 00 times Medical daily. Branch Apply 4 g qid clopidogreL 2020-0 Yes [id number] 75mg Take 1 [facility] 75 mg 8-10 tablet by ity of tablet 00:00: mouth [place] 00 daily. Medical Branch Leg Brace 2020-0 Yes [id number] M25.562: [facility] (TAY KNEE 8-10 [employer] to ity of BRACE) Misc 00:00: affected [place] 00 knee daily Medical Branch Diclofenac 2020-0 Yes [id number] Apply to [facility] Sodium 8-10 area(s) 4 ity of (VOLTAREN) 00:00: (four) [place] 1 % gel 00 times Medical daily. Branch Apply 4 g qid clopidogreL 2020-0 Yes [id number] 75mg Take 1 [facility] 75 mg 8-10 tablet by ity of tablet 00:00: mouth [place] 00 daily. Medical Branch Leg Brace 2020-0 Yes [id number] M25.562: [facility] (TAY KNEE 8-10 [employer] to ity of BRACE) Misc 00:00: affected [place] 00 knee daily Medical Branch Diclofenac 2020-0 Yes [id number] Apply to [facility] Sodium 8-10 area(s) 4 ity of (VOLTAREN) 00:00: (four) [place] 1 % gel 00 times Medical daily. Branch Apply 4 g qid clopidogreL 2020-0 Yes [id number] 75mg Take 1 [facility] 75 mg 8-10 tablet by ity of tablet 00:00: mouth [place] 00 daily. Medical Branch Leg Brace 2020-0 Yes [id number] M25.562: [facility] (TAY KNEE 8-10 [employer] to ity of BRACE) Misc 00:00: affected [place] 00 knee daily Medical Branch Diclofenac 2020-0 Yes [id number] Apply to [facility] Sodium 8-10 area(s) 4 ity of (VOLTAREN) 00:00: (four) [place] 1 % gel 00 times Medical daily. Branch Apply 4 g qid clopidogreL 2020-0 Yes [id number] 75mg Take 1 [facility] 75 mg 8-10 tablet by ity of tablet 00:00: mouth [place] 00 daily. Medical Branch Leg Brace 2020-0 Yes [id number] M25.562: [facility] (TAY KNEE 8-10 [employer] to ity of BRACE) Misc 00:00: affected [place] 00 knee daily Medical Branch Diclofenac 2020-0 Yes [id number] Apply to [facility] Sodium 8-10 area(s) 4 ity of (VOLTAREN) 00:00: (four) [place] 1 % gel 00 times Medical daily. Branch Apply 4 g qid levETIRAcet 2020-0 Yes [id number] 1000mg Take 1 [facility] am 1,000 mg 8-10 tablet by ity of tablet 00:00: mouth 2 [place] 00 (two) Medical times Branch daily. atorvastati 0 Yes [id number] 80mg Take 1 [facility] n 80 mg 8-10 tablet by ity of tablet 00:00: mouth at [place] 00 bedtime. Medical Branch clopidogreL 0 Yes [id number] 75mg Take 1 [facility] 75 mg 8-10 tablet by ity of tablet 00:00: mouth [place] 00 daily. Medical Branch Leg Brace Yes [id number] M25.562: [facility] (TAY KNEE 8-10 [employer] to ity of BRACE) Misc 00:00: affected [place] 00 knee daily Medical Branch Diclofenac Yes [id number] Apply to [facility] Sodium 8-10 area(s) 4 ity of (VOLTAREN) 00:00: (four) [place] 1 % gel 00 times Medical daily. Branch Apply 4 g qid levETIRAcet Yes [id number] 1000mg Take 1 [facility] am 1,000 mg 8-10 tablet by ity of tablet 00:00: mouth 2 (two) Medical times Branch daily. atorvastati Yes [id number] 80mg Take 1 [facility] n 80 mg 8-10 tablet by ity of tablet 00:00: mouth at [place] bedtime. Medical Branch clopidogreL Yes [id number] 75mg Take 1 [facility] 75 mg 8-10 tablet by ity of tablet 00:00: mouth [place] 00 daily. Medical Branch Leg Brace Yes [id number] M25.562: [facility] (TAY KNEE 8-10 [employer] to ity of BRACE) Misc 00:00: affected [place] 00 knee daily Medical Branch Diclofenac 0 Yes [id number] Apply to [facility] Sodium 8-10 area(s) 4 ity of (VOLTAREN) 00:00: (four) [place] 1 % gel 00 times Medical daily. Branch Apply 4 g qid levETIRAcet 2020-0 Yes [id number] 1000mg Take 1 [facility] am 1,000 mg 8-10 tablet by ity of tablet 00:00: mouth 2 (two) Medical times Branch daily. atorvastati 2020-0 Yes [id number] 80mg Take 1 [facility] n 80 mg 8-10 tablet by ity of tablet 00:00: mouth at [place] 00 bedtime. Medical Branch clopidogreL 0 Yes [id number] 75mg Take 1 [facility] 75 mg 8-10 tablet by ity of tablet 00:00: mouth [place] 00 daily. Medical Branch Leg Brace 0 Yes [id number] M25.562: [facility] (TAY KNEE 8-10 [employer] to ity of BRACE) Misc 00:00: affected [place] 00 knee daily Medical Branch Diclofenac 2020-0 Yes [id number] Apply to [facility] Sodium 8-10 area(s) 4 ity of (VOLTAREN) 00:00: (four) [place] 1 % gel 00 times Medical daily. Branch Apply 4 g qid levETIRAcet Yes [id number] 1000mg Take 1 [facility] am 1,000 mg 8-10 tablet by ity of tablet 00:00: mouth 2 [place] 00 (two) Medical times Branch daily. atorvastati 0 Yes [id number] 80mg Take 1 [facility] n 80 mg 8-10 tablet by ity of tablet 00:00: mouth at [place] 00 bedtime. Medical Branch clopidogreL Yes [id number] 75mg Take 1 [facility] 75 mg 8-10 tablet by ity of tablet 00:00: mouth [place] 00 daily. Medical Branch Leg Brace Yes [id number] M25.562: [facility] (TAY KNEE 8-10 [employer] to ity of BRACE) Misc 00:00: affected [place] 00 knee daily Medical Branch Diclofenac 2020-0 Yes [id number] Apply to [facility] Sodium 8-10 area(s) 4 ity of (VOLTAREN) 00:00: (four) [place] 1 % gel 00 times Medical daily. Branch Apply 4 g qid atorvastati 2020-0 Yes [id number] 80mg Take 1 [facility] n 80 mg 8-10 tablet by ity of tablet 00:00: mouth at [place] 00 bedtime. Medical Branch clopidogreL 2020-0 Yes [id number] 75mg Take 1 [facility] 75 mg 8-10 tablet by ity of tablet 00:00: mouth [place] 00 daily. Medical Branch Leg Brace 2020-0 Yes [id number] M25.562: [facility] (TAY KNEE 8-10 [employer] to ity of BRACE) Misc 00:00: affected [place] 00 knee daily Medical Branch Diclofenac 2020-0 Yes [id number] Apply to [facility] Sodium 8-10 area(s) 4 ity of (VOLTAREN) 00:00: (four) [place] 1 % gel 00 times Medical daily. Branch Apply 4 g qid atorvastati 2020-0 Yes [id number] 80mg Take 1 [facility] n 80 mg 8-10 tablet by ity of tablet 00:00: mouth at [place] 00 bedtime. Medical Branch clopidogreL 2020-0 Yes [id number] 75mg Take 1 [facility] 75 mg 8-10 tablet by ity of tablet 00:00: mouth [place] 00 daily. Medical Branch Leg Brace 2020-0 Yes [id number] M25.562: [facility] (TAY KNEE 8-10 [employer] to ity of BRACE) Misc 00:00: affected [place] 00 knee daily Medical Branch Diclofenac 2020-0 Yes [id number] Apply to [facility] Sodium 8-10 area(s) 4 ity of (VOLTAREN) 00:00: (four) [place] 1 % gel 00 times Medical daily. Branch Apply 4 g qid atorvastati 0 Yes [id number] 80mg Take 1 [facility] n 80 mg 8-10 tablet by ity of tablet 00:00: mouth at [place] 00 bedtime. Medical Branch clopidogreL 2020-0 Yes [id number] 75mg Take 1 [facility] 75 mg 8-10 tablet by ity of tablet 00:00: mouth [place] 00 daily. Medical Branch Leg Brace 0 Yes [id number] M25.562: [facility] (TAY KNEE 8-10 [employer] to ity of BRACE) Misc 00:00: affected [place] 00 knee daily Medical Branch Diclofenac 2020-0 Yes [id number] Apply to [facility] Sodium 8-10 area(s) 4 ity of (VOLTAREN) 00:00: (four) [place] 1 % gel 00 times Medical daily. Branch Apply 4 g qid atorvastati 2020-0 Yes [id number] 80mg Take 1 [facility] n 80 mg 8-10 tablet by ity of tablet 00:00: mouth at [place] 00 bedtime. Medical Branch clopidogreL 2020-0 Yes [id number] 75mg Take 1 [facility] 75 mg 8-10 tablet by ity of tablet 00:00: mouth [place] 00 daily. Medical Branch Leg Brace 2020-0 Yes [id number] M25.562: [facility] (TAY KNEE 8-10 [employer] to ity of BRACE) Misc 00:00: affected [place] 00 knee daily Medical Branch Diclofenac 2020-0 Yes [id number] Apply to [facility] Sodium 8-10 area(s) 4 ity of (VOLTAREN) 00:00: (four) [place] 1 % gel 00 times Medical daily. Branch Apply 4 g qid atorvastati 2020-0 Yes [id number] 80mg Take 1 [facility] n 80 mg 8-10 tablet by ity of tablet 00:00: mouth at [place] 00 bedtime. Medical Branch clopidogreL 2020-0 Yes [id number] 75mg Take 1 [facility] 75 mg 8-10 tablet by ity of tablet 00:00: mouth [place] 00 daily. Medical Branch Leg Brace 0 Yes [id number] M25.562: [facility] (TAY KNEE 8-10 [employer] to ity of BRACE) Misc 00:00: affected [place] 00 knee daily Medical Branch Diclofenac 2020-0 Yes [id number] Apply to [facility] Sodium 8-10 area(s) 4 ity of (VOLTAREN) 00:00: (four) [place] 1 % gel 00 times Medical daily. Branch Apply 4 g qid atorvastati 2020-0 Yes [id number] 80mg Take 1 [facility] n 80 mg 8-10 tablet by ity of tablet 00:00: mouth at [place] 00 bedtime. Medical Branch clopidogreL 2020-0 Yes [id number] 75mg Take 1 [facility] 75 mg 8-10 tablet by ity of tablet 00:00: mouth [place] 00 daily. Medical Branch Leg Brace 2020-0 Yes [id number] M25.562: [facility] (TAY KNEE 8-10 [employer] to ity of BRACE) Misc 00:00: affected [place] 00 knee daily Medical Branch Diclofenac 2020-0 Yes [id number] Apply to [facility] Sodium 8-10 area(s) 4 ity of (VOLTAREN) 00:00: (four) [place] 1 % gel 00 times Medical daily. Branch Apply 4 g qid atorvastati 2020-0 Yes [id number] 80mg Take 1 [facility] n 80 mg 8-10 tablet by ity of tablet 00:00: mouth at [place] 00 bedtime. Medical Branch clopidogreL 2020-0 Yes [id number] 75mg Take 1 [facility] 75 mg 8-10 tablet by ity of tablet 00:00: mouth [place] 00 daily. Medical Branch Leg Brace Yes [id number] M25.562: [facility] (TAY KNEE 8-10 [employer] to ity of BRACE) Misc 00:00: affected [place] 00 knee daily Medical Branch Diclofenac Yes [id number] Apply to [facility] Sodium 8-10 area(s) 4 ity of (VOLTAREN) 00:00: (four) [place] 1 % gel 00 times Medical daily. Branch Apply 4 g qid atorvastati 2021- No [id number] 80mg Take 1 [facility] n 80 mg 8-02 17- tablet by ity of tablet 00:00: 00:00 mouth at [place] 00 :00 bedtime. Medical Branch atorvastati 2021- No [id number] 80mg Take 1 [facility] n 80 mg 8-01-30 tablet by ity of tablet 00:00: 00:00 mouth at [place] 00 :00 bedtime. Medical Branch levETIRAcet 2021- No [id number] 1000mg Take 1 [facility] am 1,000 mg 8-10 06-13 tablet by it y of tablet 00:00: 00:00 mouth 2 [place] 00 :00 (two) Medical times Branch daily. niacin Yes [id number] 1000mg Take 1 [facility] 1,000 mg 4-29 tablet by ity of tablet 00:00: mouth [place] 00 daily. Medical Branch niacin Yes [id number] 1000mg Take 1 [facility] [place] 1,000 mg 4-29 tablet by ity of tablet 00:00: mouth [place] 00 daily. Medical Branch niacin Yes [id number] 1000mg Take 1 [facility] [place] 1,000 mg 4-29 tablet by ity of tablet 00:00: mouth [place] 00 daily. Medical Branch niacin Yes [id number] 1000mg Take 1 [facility] [place] 1,000 mg 4-29 tablet by ity of tablet 00:00: mouth [place] 00 daily. Medical Branch levothyroxi Yes [id number] 200ug Take 1 [facility] ne 200 mcg 4-29 tablet by ity of tablet 00:00: mouth [place] 00 every Medical morning. Branch niacin Yes [id number] 1000mg Take 1 [facility] [place] 1,000 mg 4-29 tablet by ity of tablet 00:00: mouth [place] 00 daily. Medical Branch levothyroxi 2020-0 Yes [id number] 200ug Take 1 [facility] ne 200 mcg 4-29 tablet by ity of tablet 00:00: mouth [place] 00 every Medical morning. Branch niacin 2020-0 Yes [id number] 1000mg Take 1 [facility] [place] 1,000 mg 4-29 tablet by ity of tablet 00:00: mouth [place] 00 daily. Medical Branch levothyroxi 0 Yes [id number] 200ug Take 1 [facility] ne 200 mcg 4-29 tablet by ity of tablet 00:00: mouth [place] 00 every Medical morning. Branch niacin 2020-0 Yes [id number] 1000mg Take 1 [facility] [place] 1,000 mg 4-29 tablet by ity of tablet 00:00: mouth [place] 00 daily. Medical Branch levothyroxi 0 Yes [id number] 200ug Take 1 [facility] ne 200 mcg 4-29 tablet by ity of tablet 00:00: mouth [place] 00 every Medical morning. Branch niacin 2020-0 Yes [id number] 1000mg Take 1 [facility] [place] 1,000 mg 4-29 tablet by ity of tablet 00:00: mouth [place] 00 daily. Medical Branch levothyroxi 0 Yes [id number] 200ug Take 1 [facility] ne 200 mcg 4-29 tablet by ity of tablet 00:00: mouth [place] 00 every Medical morning. Branch niacin 2020-0 Yes [id number] 1000mg Take 1 [facility] [place] 1,000 mg 4-29 tablet by ity of tablet 00:00: mouth [place] 00 daily. Medical Branch levothyroxi 2020-0 Yes [id number] 200ug Take 1 [facility] ne 200 mcg 4-29 tablet by ity of tablet 00:00: mouth [place] 00 every Medical morning. Branch niacin 2020-0 Yes [id number] 1000mg Take 1 [facility] [place] 1,000 mg 4-29 tablet by ity of tablet 00:00: mouth [place] 00 daily. Medical Branch levothyroxi 0 Yes [id number] 200ug Take 1 [facility] ne 200 mcg 4-29 tablet by ity of tablet 00:00: mouth [place] 00 every Medical morning. Branch niacin 2020-0 Yes [id number] 1000mg Take 1 [facility] [place] 1,000 mg 4-29 tablet by ity of tablet 00:00: mouth [place] 00 daily. Medical Branch levothyroxi Yes [id number] 200ug Take 1 [facility] ne 200 mcg 4-29 tablet by ity of tablet 00:00: mouth [place] 00 every Medical morning. Branch niacin Yes [id number] 1000mg Take 1 [facility] [place] 1,000 mg 4-29 tablet by ity of tablet 00:00: mouth [place] 00 daily. Medical Branch niacin Yes [id number] 1000mg Take 1 [facility] [place] 1,000 mg 4-29 tablet by ity of tablet 00:00: mouth [place] 00 daily. Medical Branch niacin Yes [id number] 1000mg Take 1 [facility] [place] 1,000 mg 4-29 tablet by ity of tablet 00:00: mouth [place] 00 daily. Medical Branch niacin Yes [id number] 1000mg Take 1 [facility] [place] 1,000 mg 4-29 tablet by ity of tablet 00:00: mouth [place] 00 daily. Medical Branch niacin 2021- No [id number] 1000mg Take 1 [facility] nivers 1,000 mg 4-29 09-21 tablet by ity o f tablet 00:00: 00:00 mouth [place] 00 :00 daily. [facility] Branch niacin 2021- No [id number] 1000mg Take 1 U nivers 1,000 mg 4-29 09-21 tablet by ity o f tablet 00:00: 00:00 mouth [place] 00 :00 daily. Medical Branch levothyroxi 2021- No [id number] 200ug Take 1 [facility] ne 200 mcg 4-29 - tablet by ity of tablet 00:00: 00:00 mouth [place] 00 :00 every Medical morning. Branch bacitracin Yes [id number] Apply to [facility] 500 1-27 affected ity of unit/gram 00:00: area(s) 2 [place] as ointment 00 (two) Medical times Branch daily. bacitracin Yes [id number] Apply to [facility] 500 1-27 affected ity of unit/gram 00:00: area(s) 2 [place] as ointment 00 (two) Medical times Branch daily. bacitracin 2021-0 Yes [id number] Apply to [facility] 500 1-27 affected ity of unit/gram 00:00: area(s) 2 [place] as ointment 00 (two) Medical times Branch daily. bacitracin 2021-0 Yes [id number] Apply to [facility] 500 1-27 affected ity of unit/gram 00:00: area(s) 2 [place] as ointment 00 (two) Medical times Branch daily. bacitracin 2021-0 Yes [id number] Apply to [facility] 500 1-27 affected ity of unit/gram 00:00: area(s) 2 [place] as ointment 00 (two) Medical times Branch daily. bacitracin 2021-0 Yes [id number] Apply to [facility] 500 1-27 affected ity of unit/gram 00:00: area(s) 2 [place] as ointment 00 (two) Medical times Branch daily. bacitracin 2021-0 Yes [id number] Apply to [facility] 500 1-27 affected ity of unit/gram 00:00: area(s) 2 [place] as ointment 00 (two) Medical times Branch daily. bacitracin 2021-0 Yes [id number] Apply to [facility] 500 1-27 affected ity of unit/gram 00:00: area(s) 2 [place] as ointment 00 (two) Medical times Branch daily. bacitracin 2021-0 Yes [id number] Apply to [facility] 500 1-27 affected ity of unit/gram 00:00: area(s) 2 [place] as ointment 00 (two) Medical times Branch daily. bacitracin 2021-0 Yes [id number] Apply to [facility] 500 1-27 affected ity of unit/gram 00:00: area(s) 2 [place] as ointment 00 (two) Medical times Branch daily. bacitracin 2021-0 Yes [id number] Apply to [facility] 500 1-27 affected ity of unit/gram 00:00: area(s) 2 [place] as ointment 00 (two) Medical times Branch daily. bacitracin 2021-0 Yes [id number] Apply to [facility] 500 1-27 affected ity of unit/gram 00:00: area(s) 2 [place] as ointment 00 (two) Medical times Branch daily. bacitracin 2021-0 Yes [id number] Apply to [facility] 500 1-27 affected ity of unit/gram 00:00: area(s) 2 [place] as ointment 00 (two) Medical times Branch daily. bacitracin 2021-0 Yes [id number] Apply to [facility] 500 1-27 affected ity of unit/gram 00:00: area(s) 2 [place] as ointment 00 (two) Medical times Branch daily. bacitracin 2021-0 Yes [id number] Apply to [facility] 500 1-27 affected ity of unit/gram 00:00: area(s) 2 [place] as ointment 00 (two) Medical times Branch daily. bacitracin 2021-0 Yes [id number] Apply to [facility] 500 1-27 affected ity of unit/gram 00:00: area(s) 2 [place] as ointment 00 (two) Medical times Branch daily. bacitracin 2021-0 Yes [id number] Apply to [facility] 500 1-27 affected ity of unit/gram 00:00: area(s) 2 [place] as ointment 00 (two) Medical times Branch daily. bacitracin 2021-0 Yes [id number] Apply to [facility] 500 1-27 affected ity of unit/gram 00:00: area(s) 2 [place] as ointment 00 (two) Medical times Branch daily. bacitracin 2021-0 Yes [id number] Apply to [facility] 500 1-27 affected ity of unit/gram 00:00: area(s) 2 [place] as ointment 00 (two) Medical times Branch daily. bacitracin 2021-0 Yes [id number] Apply to [facility] 500 1-27 affected ity of unit/gram 00:00: area(s) 2 [place] as ointment 00 (two) Medical times Branch daily. bacitracin 2021-0 Yes [id number] Apply to [facility] 500 1-27 affected ity of unit/gram 00:00: area(s) 2 [place] as ointment 00 (two) Medical times Branch daily. aspirin 81 2020-0 Yes [id number] 81mg Take 1 U nivers mg chewable 7-10 tablet by ity of tablet 00:00: mouth [place] 00 daily. Medical Branch aspirin 81 2020-0 Yes [id number] 81mg Take 1 U nivers mg chewable 7-10 tablet by ity of tablet 00:00: mouth [place] 00 daily. Medical Branch aspirin 81 2020-0 Yes [id number] 81mg Take 1 U nivers mg chewable 7-10 tablet by ity of tablet 00:00: mouth [place] 00 daily. Medical Branch aspirin 81 2020-0 Yes [id number] 81mg Take 1 U nivers mg chewable 7-10 tablet by ity of tablet 00:00: mouth [place] 00 daily. Medical Branch aspirin 81 2020-0 Yes [id number] 81mg Take 1 U nivers mg chewable 7-10 tablet by ity of tablet 00:00: mouth [place] 00 daily. [facility] aspirin 81 2020-0 Yes [id number] 81mg Take 1 [facility] mg chewable 7-10 tablet by ity of tablet 00:00: mouth [place] 00 daily. [facility] aspirin 81 2020-0 Yes [id number] 81mg Take 1 [facility] mg chewable 7-10 tablet by ity of tablet 00:00: mouth [place] 00 daily. [facility] aspirin 81 2020-0 Yes [id number] 81mg Take 1 [facility] mg chewable 7-10 tablet by ity of tablet 00:00: mouth [place] 00 daily. [facility] aspirin 81 2020-0 Yes [id number] 81mg Take 1 [facility] mg chewable 7-10 tablet by ity of tablet 00:00: mouth [place] 00 daily. [facility] aspirin 81 2020-0 Yes [id number] 81mg Take 1 [facility] mg chewable 7-10 tablet by ity of tablet 00:00: mouth [place] 00 daily. [facility] aspirin 81 2020-0 Yes [id number] 81mg Take 1 [facility] mg chewable 7-10 tablet by ity of tablet 00:00: mouth [place] 00 daily. [facility] aspirin 81 2020-0 Yes [id number] 81mg Take 1 [facility] mg chewable 7-10 tablet by ity of tablet 00:00: mouth [place] 00 daily. [facility] aspirin 81 2020-0 Yes [id number] 81mg Take 1 [facility] mg chewable 7-10 tablet by ity of tablet 00:00: mouth [place] 00 daily. [facility] aspirin 81 2020-0 Yes [id number] 81mg Take 1 [facility] mg chewable 7-10 tablet by ity of tablet 00:00: mouth [place] 00 daily. [facility] aspirin 81 2020-0 Yes [id number] 81mg Take 1 [facility] mg chewable 7-10 tablet by ity of tablet 00:00: mouth [place] 00 daily. [facility] aspirin 81 2020-0 Yes [id number] 81mg Take 1 [facility] mg chewable 7-10 tablet by ity of tablet 00:00: mouth [place] 00 daily. [facility] aspirin 81 2020-0 Yes [id number] 81mg Take 1 [facility] mg chewable 7-10 tablet by ity of tablet 00:00: mouth [place] 00 daily. [facility] aspirin 81 2020-0 Yes [id number] 81mg Take 1 [facility] mg chewable 7-10 tablet by ity of tablet 00:00: mouth [place] 00 daily. [facility] aspirin 81 2020-0 Yes [id number] 81mg Take 1 [facility] mg chewable 7-10 tablet by ity of tablet 00:00: mouth [place] 00 daily. [facility] aspirin 81 2020-0 Yes [id number] 81mg Take 1 [facility] mg chewable 7-10 tablet by ity of tablet 00:00: mouth [place] 00 daily. [facility] aspirin 81 2020-0 Yes [id number] 81mg Take 1 [facility] mg chewable 7-10 tablet by ity of tablet 00:00: mouth [place] 00 daily. [facility] chlorhexidi 2020-0 Yes [id number] 15mL [facility] ne 0.12 % 3-02 spit out ity of mouthwash 00:00: 15 mL 2 [place] 00 (two) Medical times Branch daily. chlorhexidi 2020-0 Yes [id number] 15mL [facility] ne 0.12 % 3-02 spit out ity of mouthwash 00:00: 15 mL 2 [place] 00 (two) Medical times Branch daily. chlorhexidi 2020-0 Yes [id number] 15mL [facility] ne 0.12 % 3-02 spit out ity of mouthwash 00:00: 15 mL 2 [place] 00 (two) Medical times Branch daily. chlorhexidi 2020-0 Yes [id number] 15mL [facility] ne 0.12 % 3-02 spit out ity of mouthwash 00:00: 15 mL 2 [place] 00 (two) Medical times Branch daily. chlorhexidi 2020-0 Yes [id number] 15mL [facility] ne 0.12 % 3-02 spit out ity of mouthwash 00:00: 15 mL 2 [place] 00 (two) Medical times Branch daily. chlorhexidi 2020-0 Yes [id number] 15mL [facility] ne 0.12 % 3-02 spit out ity of mouthwash 00:00: 15 mL 2 [place] 00 (two) Medical times Branch daily. chlorhexidi 2020-0 Yes [id number] 15mL [facility] ne 0.12 % 3-02 spit out ity of mouthwash 00:00: 15 mL 2 [place] 00 (two) Medical times Branch daily. chlorhexidi 2020-0 Yes [id number] 15mL [facility] ne 0.12 % 3-02 spit out ity of mouthwash 00:00: 15 mL 2 [place] 00 (two) Medical times Branch daily. chlorhexidi 2020-0 Yes [id number] 15mL [facility] ne 0.12 % 3-02 spit out ity of mouthwash 00:00: 15 mL 2 [place] 00 (two) Medical times Branch daily. chlorhexidi 2020-0 Yes [id number] 15mL [facility] ne 0.12 % 3-02 spit out ity of mouthwash 00:00: 15 mL 2 [place] 00 (two) Medical times Branch daily. chlorhexidi 2020-0 Yes [id number] 15mL [facility] ne 0.12 % 3-02 spit out ity of mouthwash 00:00: 15 mL 2 [place] 00 (two) Medical times Branch daily. chlorhexidi 2020-0 Yes [id number] 15mL [facility] ne 0.12 % 3-02 spit out ity of mouthwash 00:00: 15 mL 2 [place] 00 (two) Medical times Branch daily. chlorhexidi 2020-0 Yes [id number] 15mL [facility] ne 0.12 % 3-02 spit out ity of mouthwash 00:00: 15 mL 2 [place] 00 (two) Medical times Branch daily. chlorhexidi 2020-0 Yes [id number] 15mL [facility] ne 0.12 % 3-02 spit out ity of mouthwash 00:00: 15 mL 2 [place] 00 (two) Medical times Branch daily. chlorhexidi 2020-0 Yes [id number] 15mL [facility] ne 0.12 % 3-02 spit out ity of mouthwash 00:00: 15 mL 2 [place] 00 (two) Medical times Branch daily. chlorhexidi 2020-0 Yes [id number] 15mL [facility] ne 0.12 % 3-02 spit out ity of mouthwash 00:00: 15 mL 2 [place] 00 (two) Medical times Branch daily. chlorhexidi 2020-0 Yes [id number] 15mL [facility] ne 0.12 % 3-02 spit out ity of mouthwash 00:00: 15 mL 2 [place] 00 (two) Medical times Branch daily. chlorhexidi 2020-0 Yes [id number] 15mL [facility] ne 0.12 % 3-02 spit out ity of mouthwash 00:00: 15 mL 2 [place] 00 (two) Medical times Branch daily. chlorhexidi 2020-0 Yes [id number] 15mL [facility] ne 0.12 % 3-02 spit out ity of mouthwash 00:00: 15 mL 2 [place] 00 (two) Medical times Branch daily. chlorhexidi 2020-0 Yes [id number] 15mL [facility] ne 0.12 % 3-02 spit out ity of mouthwash 00:00: 15 mL 2 [place] 00 (two) Medical times Branch daily. chlorhexidi 2020-0 Yes [id number] 15mL [facility] ne 0.12 % 3-02 spit out ity of mouthwash 00:00: 15 mL 2 [place] 00 (two) Medical times Branch daily. triamcinolo 2019-0 Yes [id number] Apply to [facility] ne 1-11 affected ity of acetonide 00:00: area(s) 2 [place] as 0.1 % cream 00 (two) Medical times Branch daily. triamcinolo 2019-0 Yes [id number] Apply to [facility] ne 1-11 affected ity of acetonide 00:00: area(s) 2 [place] as 0.1 % cream 00 (two) Medical times Branch daily. triamcinolo 2019-0 Yes [id number] Apply to [facility] ne 1-11 affected ity of acetonide 00:00: area(s) 2 [place] as 0.1 % cream 00 (two) Medical times Branch daily. triamcinolo 2019-0 Yes [id number] Apply to [facility] ne 1-11 affected ity of acetonide 00:00: area(s) 2 [place] as 0.1 % cream 00 (two) Medical times Branch daily. triamcinolo 2019-0 Yes [id number] Apply to [facility] ne 1-11 affected ity of acetonide 00:00: area(s) 2 [place] as 0.1 % cream 00 (two) Medical times Branch daily. triamcinolo 2019- Yes [id number] Apply to [facility] ne 1-11 affected ity of acetonide 00:00: area(s) 2 [place] as 0.1 % cream 00 (two) Medical times Branch daily. triamcinolo 2019- Yes [id number] Apply to [facility] 1-11 affected ity of acetonide 00:00: area(s) 2 [place] as 0.1 % cream 00 (two) Medical times Branch daily. triamcinolo Yes [id number] Apply to [facility] 1-11 affected ity of acetonide 00:00: area(s) 2 [place] as 0.1 % cream 00 (two) Medical times Branch daily. triamcinolo 2018- Yes [id number] Apply to [facility] 1-11 affected ity of acetonide 00:00: area(s) 2 [place] as 0.1 % cream 00 (two) Medical times Branch daily. triamcinolo Yes [id number] Apply to [facility] 1-11 affected ity of acetonide 00:00: area(s) 2 [place] as 0.1 % cream 00 (two) Medical times Branch daily. triamcinolo 2018- Yes [id number] Apply to [facility] 1-11 affected ity of acetonide 00:00: area(s) 2 [place] as 0.1 % cream 00 (two) Medical times Branch daily. triamcinolo 2018- Yes [id number] Apply to [facility] 1-11 affected ity of acetonide 00:00: area(s) 2 [place] as 0.1 % cream 00 (two) Medical times Branch daily. triamcinolo 0 Yes [id number] Apply to [facility] 1-11 affected ity of acetonide 00:00: area(s) 2 [place] as 0.1 % cream 00 (two) Medical times Branch daily. triamcinolo 2019-0 Yes [id number] Apply to [facility] 1-11 affected ity of acetonide 00:00: area(s) 2 [place] as 0.1 % cream 00 (two) Medical times Branch daily. triamcinolo 2019-0 Yes [id number] Apply to [facility] 1-11 affected ity of acetonide 00:00: area(s) 2 [place] as 0.1 % cream 00 (two) Medical times Branch daily. triamcinholly Yes [id number] Apply to [facility] 11 affected ity of acetonide 00:00: area(s) 2 [place] as 0.1 % cream 00 (two) Medical times Branch daily. triamcinholly Yes [id number] Apply to [facility] 05-22 affected ity of acetonide 00:00: area(s) 2 [place] as 0.1 % cream 00 (two) Medical times Branch daily. triamcinholly Yes [id number] Apply to [facility] 05-22 affected ity of acetonide 00:00: area(s) 2 [place] as 0.1 % cream 00 (two) Medical times Branch daily. triamcinholly Yes [id number] Apply to [facility] affected ity of acetonide 00:00: area(s) 2 [place] as 0.1 % cream 00 (two) Medical times Branch daily. triamcinholly Yes [id number] Apply to [facility] 05-22 affected ity of acetonide 00:00: area(s) 2 [place] 0.1 % cream 00 (two) Medical times Branch daily. triamcinholly Yes [id number] Apply to [facility] affected ity of acetonide 00:00: area(s) 2 [place] as 0.1 % cream 00 (two) Medical times Branch daily. atorvastati atorvastati No atorvastat [facility] n 40 mg n 40 mg in 40 mg Medic al tablet TAKE tablet TAKE tablet 1 TABLET BY 1 TABLET BY TAKE 1 MOUTH AT MOUTH AT TABLET BY BEDTIME BEDTIME MOUTH AT BEDTIME atorvastati atorvastati No atorvastat [facility] n 80 mg n 80 mg in 80 mg Medic al tablet tablet tablet clopidogrel clopidogrel No clopidogre [facility] 75 mg 75 mg l 75 mg Medical tablet tablet tablet Inveltys 1 Inveltys 1 No Inveltys 1 [facility] % eye % eye % eye Medical drops,suspe drops,suspe drops,susp nsion nsion ension levetiracet levetiracet No levetirace [facility] am 1,000 mg am 1,000 mg pettit 1,000 Medical tablet TAKE tablet TAKE mg tablet 1 TABLET BY 1 TABLET BY TAKE 1 MOUTH IN MOUTH IN TABLET BY THE MORNING THE MORNING MOUTH IN AND IN THE AND IN THE THE EVENING EVENING MORNING AND IN THE EVENING levothyroxi levothyroxi No levothyrox [facility] ne 200 mcg ne 200 mcg ine 200 Medical tablet TAKE tablet TAKE mcg tablet 1 TABLET BY 1 TABLET BY TAKE 1 MOUTH ONCE MOUTH ONCE TABLET BY DAILY IN DAILY IN MOUTH ONCE THE MORNING THE MORNING DAILY IN THE MORNING loteprednol loteprednol No lotepredno [facility] etabonate etabonate l Medic al 0.5 % eye 0.5 % eye etabonate drops,suspe drops,suspe 0.5 % eye nsion nsion drops,susp INSTILL 1 INSTILL 1 ension DROP INTO DROP INTO INSTILL 1 AFFECTED AFFECTED DROP INTO EYE(S) BY EYE(S) BY AFFECTED OPHTHALMIC OPHTHALMIC EYE(S) BY ROUTE 2 ROUTE 2 OPHTHALMIC TIMES PER TIMES PER ROUTE 2 DAY DAY TIMES PER DAY prednisone prednisone No prednisone [facility] 10 mg 10 mg 10 mg Medical tablet tablet tablet atorvastati atorvastati No atorvastat [facility] n 40 mg n 40 mg in 40 mg Medic al tablet TAKE tablet TAKE tablet 1 TABLET BY 1 TABLET BY TAKE 1 MOUTH AT MOUTH AT TABLET BY BEDTIME BEDTIME MOUTH AT BEDTIME atorvastati atorvastati No atorvastat [facility] n 80 mg n 80 mg in 80 mg Medic al tablet tablet tablet clopidogrel clopidogrel No clopidogre [facility] 75 mg 75 mg l 75 mg Medical tablet tablet tablet Inveltys 1 Inveltys 1 No Inveltys 1 [facility] % eye % eye % eye Medical drops,suspe drops,suspe drops,susp nsion nsion ension levetiracet levetiracet No levetirace [facility] am 1,000 mg am 1,000 mg pettit 1,000 Medical tablet TAKE tablet TAKE mg tablet 1 TABLET BY 1 TABLET BY TAKE 1 MOUTH IN MOUTH IN TABLET BY THE MORNING THE MORNING MOUTH IN AND IN THE AND IN THE THE EVENING EVENING MORNING AND IN THE EVENING levothyroxi levothyroxi No levothyrox [facility] ne 200 mcg ne 200 mcg ine 200 Medical tablet TAKE tablet TAKE mcg tablet 1 TABLET BY 1 TABLET BY TAKE 1 MOUTH ONCE MOUTH ONCE TABLET BY DAILY IN DAILY IN MOUTH ONCE THE MORNING THE MORNING DAILY IN THE MORNING loteprednol loteprednol No lotepredno [facility] etabonate etabonate l Medic al 0.5 % eye 0.5 % eye etabonate drops,suspe drops,suspe 0.5 % eye nsion nsion drops,susp INSTILL 1 INSTILL 1 ension DROP INTO DROP INTO INSTILL 1 AFFECTED AFFECTED DROP INTO EYE(S) BY EYE(S) BY AFFECTED OPHTHALMIC OPHTHALMIC EYE(S) BY ROUTE 2 ROUTE 2 OPHTHALMIC TIMES PER TIMES PER ROUTE 2 DAY DAY TIMES PER DAY prednisone prednisone No prednisone [facility] 10 mg 10 mg 10 mg Medical tablet tablet tablet atorvastati atorvastati No atorvastat [facility] n 40 mg n 40 mg in 40 mg Medic al tablet TAKE tablet TAKE tablet 1 TABLET BY 1 TABLET BY TAKE 1 MOUTH AT MOUTH AT TABLET BY BEDTIME BEDTIME MOUTH AT BEDTIME atorvastati atorvastati No atorvastat [facility] n 80 mg n 80 mg in 80 mg Medic al tablet tablet tablet clopidogrel clopidogrel No clopidogre [facility] 75 mg 75 mg l 75 mg Medical tablet tablet tablet Inveltys 1 Inveltys 1 No Inveltys 1 [facility] % eye % eye % eye Medical drops,suspe drops,suspe drops,susp nsion nsion ension levetiracet levetiracet No levetirace [facility] am 1,000 mg am 1,000 mg pettit 1,000 Medical tablet TAKE tablet TAKE mg tablet 1 TABLET BY 1 TABLET BY TAKE 1 MOUTH IN MOUTH IN TABLET BY THE MORNING THE MORNING MOUTH IN AND IN THE AND IN THE THE EVENING EVENING MORNING AND IN THE EVENING levothyroxi levothyroxi No levothyrox [facility] ne 200 mcg ne 200 mcg ine 200 Medical tablet TAKE tablet TAKE mcg tablet 1 TABLET BY 1 TABLET BY TAKE 1 MOUTH ONCE MOUTH ONCE TABLET BY DAILY IN DAILY IN MOUTH ONCE THE MORNING THE MORNING DAILY IN THE MORNING loteprednol loteprednol No lotepredno [facility] etabonate etabonate l Medic al 0.5 % eye 0.5 % eye etabonate drops,suspe drops,suspe 0.5 % eye nsion nsion drops,susp INSTILL 1 INSTILL 1 ension DROP INTO DROP INTO INSTILL 1 AFFECTED AFFECTED DROP INTO EYE(S) BY EYE(S) BY AFFECTED OPHTHALMIC OPHTHALMIC EYE(S) BY ROUTE 2 ROUTE 2 OPHTHALMIC TIMES PER TIMES PER ROUTE 2 DAY DAY TIMES PER DAY prednisone prednisone No prednisone [facility] 10 mg 10 mg 10 mg Medical tablet tablet tablet Immunizations Ordered Filled Immunization Date Status Comments Sour e Immunization Name Name Td 2020-06-07 Completed [facility] 00:00:00 [place] [facility] TDAP 2020-06-07 Completed [facility] of 00:00: [place] [facility] Td 2020-06-07 Completed [facility] of 00:00:00 [place] [facility] TDAP 2020-06-07 Completed [facility] of 00:00:00 [place] [facility] Td 2020-06-07 Completed [facility] of 00:00:00 [place] [facility] TDAP 2020-06-07 Completed [facility] of 00:00:00 [place] [facility] Td 2020-06-07 Completed [facility] of 00:00:00 [place] [facility] TDAP 2020-06-07 Completed [facility] of 00:00:00 [place] [facility] Td 2020-06-07 Completed [facility] of 00:00:00 [place] [facility] TDAP 2020-06-07 Completed [facility] of 00:00:00 [place] [facility] Td 2020-06-07 Completed [facility] of 00:00:00 [place] [facility] TDAP 2020-06-07 Completed [facility] of 00:00:00 [place] [facility] Td 2020-06-07 Completed [facility] of 00:00:00 [place] [facility] TDAP 2020-06-07 Completed [facility] of 00:00:00 [place] [facility] TD, NOS 2020-06-07 Completed [facility] of 00:00:00 [place] [facility] TDAP 2020-06-07 Completed [facility] of 00:00:00 [place] [facility] TD, NOS 2020-06-07 Completed [facility] of 00:00:00 [place] [facility] TDAP 2020-06-07 Completed [facility] of 00:00:00 [place] [facility] TD, NOS 2020-06-07 Completed [facility] of 00:00:00 [place] [facility] TDAP 2020-06-07 Completed [facility] of 00:00:00 [place] [facility] TD, NOS 2020-06-07 Completed University of 00:00:00 [place] [facility] TDAP 2020-06-07 Completed University of 00:00:00 [place] [facility] Td 2020-06-07 Completed [facility] of 00:00:00 [place] [facility] TDAP 2020-06-07 Completed [facility] of 00:00:00 [place] [facility] Td 2020-06-07 Completed University of 00:00:00 [place] [facility] TDAP 2020-06-07 Completed [facility] of 00:00:00 [place] [facility] Td 2020-06-07 Completed [facility] 00:00:00 [place] [facility] TDAP 2020-06-07 Completed [facility] 00:00:00 [place] [facility] Td 2020-06-07 Completed [facility] 00:00:00 [place] [facility] TDAP 2020-06-07 Completed [facility] 00:00:00 [place] [facility] Td 2020-06-07 Completed [facility] 00:00:00 [place] [facility] TDAP 2020-06-07 Completed [facility] 00:00:00 [place] [facility] Td 2020-06-07 Completed [facility] 00:00:00 [place] [facility] TDAP 2020-06-07 Completed [facility] 00:00:00 [place] [facility] Td 2020-06-07 Completed [facility] 00:00:00 [place] [facility] TDAP 2020-06-07 Completed [facility] 00:00:00 [place] [facility] Td 2020-06-07 Completed [facility] 00:00:00 [place] [facility] TDAP 2020-06-07 Completed [facility] 00:00:00 [place] [facility] Td 2020-06-07 Completed [facility] 00:00:00 [place] [facility] TDAP 2020-06-07 Completed [facility] 00:00:00 [place] [facility] Td 2020-06-07 Completed [facility] 00:00:00 [place] [facility] TDAP 2020-06-07 Completed University of 00:00:00 [facility] Td 2019-11-15 Completed University of 00:00:00 [place] [facility] Td 2019-11-15 Completed [facility] of 00:00:00 [place] [facility] Td 2019-11-15 Completed [facility] of 00:00:00 [place] [facility] Td 2019-11-15 Completed [facility] of 00:00:00 [place] [facility] Td 2019-11-15 Completed [facility] of 00:00:00 [place] [facility] Td 2019-11-15 Completed [facility] of 00:00:00 [place] [facility] Td 2019-11-15 Completed [facility] of 00:00:00 [facility] TD, NOS 2019-11-15 Completed University of 00:00:00 [facility] TD, NOS 2019-11-15 Completed University of 00:00:00 [facility] TD, NOS 2019-11-15 Completed University of 00:00:00 [place] [facility] TD, NOS 2019-11-15 Completed [facility] of 00:00:00 [place] [facility] Td 2019-11-15 Completed [facility] of 00:00:00 [place] [facility] Td 2019-11-15 Completed [facility] of 00:00:00 [place] [facility] Td 2019-11-15 Completed [facility] of 00:00:00 [place] [facility] Td 2019-11-15 Completed [facility] of 00:00:00 [place] [facility] Td 2019-11-15 Completed [facility] of 00:00:00 [place] [facility] Td 2019-11-15 Completed [facility] of 00:00:00 [place] [facility] Td 2019-11-15 Completed [facility] of 00:00:00 [place] [facility] Td 2019-11-15 Completed [facility] of 00:00:00 [place] [facility] Td 2019-11-15 Completed [facility] of 00:00:00 [place] [facility] Td 2019-11-15 Completed [facility] of 00:00:00 [place] [facility] TDAP 2019-10-20 Completed [facility] of 00:00:00 [place] [facility] TDAP 2019-10-20 Completed [facility] of 00:00:00 [place] [facility] TDAP 2019-10-20 Completed [facility] of 00:00:00 [place] [facility] TDAP 2019-10-20 Completed [facility] of 00:00:00 [place] [facility] TDAP 2019-10-20 Completed [facility] of 00:00:00 [place] [facility] TDAP 2019-10-20 Completed [facility] of 00:00:00 [place] [facility] TDAP 2019-10-20 Completed University of 00:00:00 [place] [facility] TDAP 2019-10-20 Completed [facility] of 00:00:00 [place] [facility] TDAP 2019-10-20 Completed [facility] of 00:00:00 [place] [facility] TDAP 2019-10-20 Completed [facility] of 00:00:00 [place] [facility] TDAP 2019-10-20 Completed [facility] of 00:00:00 [place] [facility] TDAP 2019-10-20 Completed [facility] of 00:00:00 [place] [facility] TDAP 2019-10-20 Completed [facility] of 00:00:00 [place] [facility] TDAP 2019-10-20 Completed [facility] of 00:00:00 [place] [facility] TDAP 2019-10-20 Completed [facility] of 00:00:00 [place] [facility] TDAP 2019-10-20 Completed [facility] of 00:00:00 [place] [facility] TDAP 2019-10-20 Completed [facility] of 00:00:00 [place] [facility] TDAP 2019-10-20 Completed [facility] of 00:00:00 [place] [facility] TDAP 2019-10-20 Completed [facility] of 00:00:00 [place] [facility] TDAP 2019-10-20 Completed [facility] of 00:00:00 [place] [facility] TDAP 2019-10-20 Completed [facility] 00:00:00 [place] [facility] Vital Signs Vital Name Observation Time Observation Value Comments Source Systolic blood 2022-01-30 18:46:00 133 mm[Hg] Univer sity of pressure [place] [facility] Diastolic blood 2022-01-30 18:46:00 77 mm[Hg] Unive rsity of pressure [place] [facility] Heart rate 2022-01-30 18:43:00 53 /min [facility] [place] [facility] Body temperature 2022-01-30 18:43:00 36.44 Janice [facility] ers[facility] [place] [facility] Respiratory rate 2022-01-30 18:43:00 18 /min [facility] [place] [facility] Body height 2022-01-30 18:43:00 180.3 cm [facility] [place] [facility] Body weight 2022-01-30 18:43:00 79.561 kg [facility] [place] [facility] BMI 2022-01-30 18:43:00 24.46 kg/m2 [facility] [place] [facility] Oxygen saturation in 2022-01-30 18:43:00 97 /min [facility] of Arterial blood by [employer] [facility] oxim[facility] Systolic blood 2021-05-15 17:05:00 117 mm[Hg] Univer sity of pressure [place] [facility] Diastolic blood 2021-05-15 17:05:00 71 mm[Hg] Unive rsity of pressure [place] [facility] Heart rate 2021-05-15 17:05:00 87 /min [facility] [place] [facility] Body temperature 2021-05-15 17:05:00 37.06 Janice [facility] [place] [facility] Respiratory rate 2021-05-15 17:05:00 18 /min [facility] [place] [facility] Body weight 2021-05-15 17:05:00 83.462 kg [facility] [place] [facility] BMI 2021-05-15 17:05:00 24.95 kg/m2 [facility] [place] [facility] Oxygen saturation in 2021-05-15 17:05:00 99 /min [facility] of Arterial blood by [employer] [facility] Pulse oximetry Branch Systolic blood 2021-04-03 21:29:00 114 mm[Hg] Univer sity of pressure [facility] Diastolic blood 2021-04-03 21:29:00 65 mm[facility]Hg[facility] 2021-04-03 21:29:00 48 /min [facility] Body temperature 2021-04-03 21:29:00 35.94 [facility] 2021-04-03 21:29:00 16 /min [facility] Body weight 2021-04-03 21:29:00 83.462 kg [facility] BMI 2021-04-03 21:29:00 24.95 kg/m2 [facility] Oxygen saturation in 2021-04-03 21:29:00 98 /min [facility] Arterial blood by [facility] Pulse oximetry Branch Procedures Procedure Date / Time Performing Clinician Source Performed ASSIGNMENT OF BENEFITS 2022-01-30 18:36:36 Doctor Unassigned, Un [facility] Pierz [facility] T4, FREE 2021-09-07 16:10:00 [facility] T3, FREE 2021-09-07 16:10:00 Mat [facility] THYROID STIMULATING 2021-09-07 16:10:00 Mat Garcia [facility] HORMONE THYROID STIMULATING 2021-09-07 16:10:00 Mat Garcia [facility] IMMUNOGLOBULIN XR CHEST 1 VW 2021-05-15 18:43:20 Cecil Rizo [facility] XR LUMBAR SPINE 2 VW 2021-05-15 18:43:20 Cecil Rizo [facility] XR SPINE THORACIC 2 VW 2021-05-15 18:43:20 Cecil Rizo [facility] CREATINE KINASE 2021-05-15 18:30:00 Cecil Rizo [facility] COMP. METABOLIC PANEL 2021-05-15 18:30:00 Cecil Rizo [facility] ([id number]) [facility] CBC WITH DIFF 2021-05-15 18:30:00 Ethel, [facility] o [facility] URINALYSIS 2021-05-15 18:30:00 [facility] o [facility] CONSENT/REFUSAL FOR 2021-05-15 16:50:51 Doctor Unassigned, Karla [facility] DIAGNOSIS AND TREATMENT [facility] Plan of Care Planned Activity Planned Date Details Comments Source Future Scheduled Test 2022-08-12 COVID-19 VACCINE [facility] 16:35:59 (#1) [code = COVID-19 VACCINE (#1)] Future Scheduled Test 2022-08-12 Hepatitis C Method [facility] 16:35:59 screening (procedure) [code = 054382341] Future Scheduled Test 2022-08-12 COLONOSCOPY Method [facility] 16:35:59 SCREENING [code = COLONOSCOPY SCREENING] Future Scheduled Test 2022-08-12 SHINGLES VACCINES (1 [facility] 16:35:59 of 2) [code = SHINGLES VACCINES (1 of 2)] Future Scheduled Test 2022-08-12 INFLUENZA VACCINE [facility] 16:35:59 [code = INFLUENZA VACCINE] Future Scheduled Test MANAGE DIPLOPIA [facility] [code = MANAGE DIPLOPIA] Future Appointment 2022-09-10 .Orthoptics [facility] 00:00:00 .Orthoptics Schedule, [address] [place] [address]; [address] [address] Instructions [facility] Encounters Start End Encounter Admission Attending Care Care Encounter Source Date/Time Date/Time Type Type Clinicians Facility Department ID 2021-03-12 Emergency [facility] [id number] Univers 09:55:37 ity of [facility] 2021-03-11 Emergency [facility] [id number] Univers 23:20:35 ity of [facility] 2021-03-11 Emergency [facility] [id number] Univers 16:39:26 ity of [facility] 2021-03-11 Emergency [facility] [id number] Univers 13:40:52 ity of [facility] 2021-03-10 Emergency X [facility] SPL [id number] Univers 19:58:35 ity of [facility] 2021-03-10 Emergency [facility] [id number] Univers 19:54:12 ity of [facility] 2021-03-09 Emergency [facility] [id number] Univers 04:56:44 ity [facility] 2021-03-08 Emergency [facility] [id number] Univers 11:57:48 [facility] 2019-10-25 Inpatient KITTY GAMBLE [facility]IVERO[place]AS [id number] [facility] 08:00:00 [facility] 2019-02-01 Inpatient KITTY GAMBLE [facility] [id number] [facility] 07:00:00 [facility] 2022-08-20 2022-08-20 Jina Jackson, [facility] [id number] [facility] 00:00:00 00:00:00 MD: [address] [place] [address] - [facility] GC_GCBEC_Be [facility] 175, [place] [address] , Ph. 2022-08-19 2022-08-19 Outpatient GC_GCBEC_Fe PRIV PRIV [id number] [facility] 00:00:00 00:00:00 rnandez_E [id number] [facility] 2022-08-19 2022-08-19 Outpatient GC_GCBEC_Fe PRIV PRIV [id number] [facility] 00:00:00 00:00:00 rnandez_E [id number] [facility] 2022-08-18 2022-08-18 Outpatient GC_GCBEC_Fe PRIV PRIV [id number] [facility] 00:00:00 00:00:00 rnandez_E [id number] [facility] 2022-08-17 2022-08-17 Outpatient GC_GCBEC_Fe PRIV PRIV [id number] [facility] 00:00:00 00:00:00 rnandez_E [id number] [facility] 2022-08-10 2022-08-10 [facility] 1.2.840.114 [id number] [facility] 00:00:00 00:00:00 Meliton AVALOS 350.1.13.10 ashlie [place] 4.2.7.2.686 Taylor TIPTON [phone] Nv dic[address] 2022-08-08 2022-08-08 Outpatient GC_GCBEC_Fe PRIV PRIV [id number] [facility] 00:00:00 00:00:00 rnandez_E [id number] [facility] 2022-08-08 2022-08-08 Zoila [facility] 00:00:00 00:00:00 Arpan Brooks - Nv dical OD: 7500 GC_GCBEC_Be [facility] Office 175, [place] [address] , Ph. 2022-08-07 2022-08-07 Outpatient GC_GCBEC_Fe PRIV PRIV [id number] [facility] 00:00:00 00:00:00 rnandez_E [id number] [facility] 2022-08-06 2022-08-06 Outpatient GC_GCBEC_Fe PRIV PRIV [id number] [facility] 00:00:00 00:00:00 rnandez_E [id number] [facility] 2022-07-16 2022-07-16 Refglenda [facility]AD[facility] 1.2.840.114 [id number] Univers 00:00:00 00:00:00 Meliton AVALOS 350.1.13.10 i ty of [place] [phone] Nv dical NAL [address] [place] [address] 2022-07-15 2022-07-15 [facility] 1.2.840.114 [id number] Univers 00:00:00 00:00:00 Meliton AVALOS 350.1.13.10 i ty of [place] [phone] Nv dical NAL [address] [place] [address] 2022-06-16 2022-06-16 [facility] 1.2.840.114 [id number] Univers 00:00:00 00:00:00 Meliton AVALOS 350.1.13.10 i ty [place] [id number] Nv dical NAL [address] [place] [address] 2022-05-03 2022-05-03 [facility] [id number] Univers 13:40:00 13:40:00 MELITON clayton [facility] 2022-04-30 2022-04-30 [facility] [id number] Univers 08:15:00 08:15:00 MELITON clayton [facility] 2022-01-30 2022-01-30 Out[facility] [id number] [facility] 13:20:00 14:12:05 MELITON clayton [facility] 2022-01-30 2022-01-30 Office LamonteanaliedilbertoBarnstable [facility] 1.2.840.114 [id number] [facility] 13:20:00 14:12:05 Visit Meliton AVALOS 350.1.13.10 i ty [place] [phone] [address] 2022-01-30 2022-01-30 Orders Doctor MONIE 1.2.840.114 [id number] Univers 00:00:00 00:00:00 Only Unassigned, JOSE 350.1.13.10 [facility] 4.2.7.2.686 Miguelito as [phone] [address] 2021-12-30 2021-12-30 [facility]ill [facility] 1.2.840.114 [id number] Univers 00:00:00 00:00:00 Meliton AVALOS 350.1.13.10 i ty [place] [phone] [address] 2021-12-25 2021-12-25 [facility] 1.2.840.114 [id number] Univers 00:00:00 00:00:00 Meliton AVALOS 350.1.13.10 i ty [place] [phone] [address] 2021-12-23 2021-12-23 [facility]cle[facility] clinic [facility] EliasADVANC[facility] 1.2.840.114 [id number] Univers 00:00:00 00:00:00 Meliton AVALOS 350.1.13.10 i ty [place] [phone] Nv dical NAL [address] [place] [address] 2021-11-24 2021-11-24 [facility] 1.2.840.114 [id number] Univers 00:00:00 00:00:00 Meliton AVALOS 350.1.13.10 i ty [place] [id number] Nv dical NAL [address] [place] [address] 2021-11-22 2021-11-22 [facility] 1.2.840.114 [id number] Univers 00:00:00 00:00:00 Meliton AVALOS 350.1.13.10 i ty [place] [id number] Nv dical NAL [address] [place] [address] 2021-11-15 2021-11-15 Telephone South, 1.2.840.1 [id number] Methodi 00:00:00 00:00:[address] 3.430.2.7 Hospit a .3.267934 l .8 2021-10-31 2021-10-31 [facility] 1.2.840.114 [id number] [facility] 00:00:00 00:00:00 Meliton AVALOS 350.1.13.10 i ty [place] [phone] Nv dical NAL [address] [place] [address] 2021-10-30 2021-10-30 Office South, 1.2.840.1 [id number] 0521 Methodi 10:00:00 10:15:00 Visit Mat 94937.1.[address] 3.430.2.7 Hospit a .3.667277 l .8 2021-10-30 2021-10-30 Outpatient S[facility]TH, [facility] [id number] 529 [place] 00:00:00 00:00:[address] 2021-10-30 2021-10-30 Travel 1.2.840.1 1.2.227.022 [id number] Methodi 00:00:00 00:00:[address] 3.430.2.7 0.2.7.3.698 Ho spita .3.661530 084.8 l .8 2021-10-24 2021-10-24 Refill Lauren [facility] 1.2.840.114 [id number] Univers 00:00:00 00:00:00 Tiera AVALOS 350.1.13.10 ity chapincito [facility] 4.2.7.2.686 Taylor lópez PROFESSIO [phone] [facility]v [facility] 044 [facility] 2021-09-07 2021-09-07 Lab South, 1.2.840.1 [id number] 7830 Methodi 10:50:00 10:55:[address] 3.430.2.7 Hospit a .3.635257 l .8 2021-09-07 2021-09-07 Office South, 1.2.840.1 [id number] 0941 Methodi 10:30:00 10:40:00 Visit Mat 17173.1.[address] 3.430.2.7 Hospit a .3.711773 l .8 2021-09-07 2021-09-07 Outpatient [facility] [id number] [place] 00:00:00 00:00:[address] 2021-09-07 2021-09-07 Outpatient [facility] [id number] 144 [place] 00:00:00 00:00:[address] MAT [address] 2021-09-07 2021-09-07 Travel 1.2.840.1 1.2.186.463 [id number] Methodi 00:00:00 00:00:[address] 3.430.2.7 0.2.7.3.698 Ho spita .3.177362 084.8 l .8 2021-08-27 2021-08-27 Refill Lauren [facility] 1.2.840.114 [id number] Univers 00:00:00 00:00:00 Ogdanielghulammelyssa AVALOS 350.1.13.10 ity of [place] [phone] [address] 2021-08-25 2021-08-25 Refill [facility]ADV[facility] 1.2.840.114 [id number] Univers 00:00:00 00:00:00 Ogdanielghulammelyssa AVALOS 350.1.13.10 ity of [facility] 4.[place] [phone] [address] 2021-06-29 2021-06-29 Outpatient R SHU [facility] [id number] Univers 14:30:00 14:30:00 RUIQING ity of [facility] 2021-06-13 2021-06-13 Refglenda So [facility] 1.2.840.114 [id number] Univers 00:00:00 00:00:00 Meliton AVALOS 350.1.13.10 i ty of [place] [id number] [address] 2021-05-15 2021-05-15 Emergency X Cecil RIZO [facility] ERT [id number] Univers 11:08:00 14:11:00 ity of [facility] 2021-05-15 2021-05-15 Emergency Cecil Rizo [facility] 1.2.840.114 [id number] Univers 11:08:00 14:11:00 Estefany AVALOS 350.1.13.10 i ty [place] [phone] [facility] 084 [place] 2021-05-15 2021-05-15 Orders Doctor LOMAX 1.2.840.114 [id number] Univers 00:00:00 00:00:00 Only Unassigned, JOSE 350.1.13.10 ity of Pierz [facility] 4.2.7.2.686 Miguelito as [phone] [facility] 00[address] 2021-04-03 2021-04-03 Outpatient R LAITH [facility] [id number] Univers 16:30:00 15:57:35 LADAN clayton [facility] 2021-04-03 2021-04-03 Outpatient Dana OZUNA [facility] [id number] Univers 16:30:00 15:57:35 LADAN clayton [facility] 2021-04-03 2021-04-03 Office LaithADV[facility] 1.2.730.994 [id number] Univers 15:04:33 15:57:35 Visit Ladan AVALOS 350.1.13.10 i ty [place] [phone] Nv dical NAL [address] [place] [address] 2021-03-20 2021-03-20 Office Ladan Ozuna [facility] 1.2.840.1 14 [id number] Univers 13:15:35 14:31:18 Visit Rm, Adc Surg Spec Procedure ROBBIE 3 50.1.13.10 ity of [facility] 4.2.7.2.[place] [phone] Nv dical NAL [address] [place] [address] 2021-03-20 2021-03-20 Outpatient R OZUNA [facility] [id number] Univers 13:00:00 14:31:18 LADAN clayton [facility] 2021-03-20 2021-03-20 Outpatient R OZUNA [facility] [id number] Univers 13:00:00 14:31:18 LADAN clayton [facility] 2021-03-20 2021-03-20 Outpatient R LAITH [facility] [id number] Univers 13:00:00 14:31:18 LADAN clayton [facility] 2021-03-20 2021-03-20 Outpatient R OZUNA [facility] [id number] Univers 13:00:00 13:00:00 LADAN clayton [facility] 2021-03-15 2021-03-15 Outpatient Dana CIFUENTESOZUNA, [facility] [id number] Univers 09:30:00 10:22:01 LADAN clayton [facility] 2021-03-152021-03-15 Outpatient R LAITH [facility] [id number] Univers 09:30:00 10:22:01 LADAN clayton [facility] 2021-03-15 2021-03-15 Office [facility]AD[facility] 1.2.797.663 [id number] Univers 09:18:43 10:22:01 Visit Ladan ROBBIE 350.1.13.10 i ty of [place] [id number] Nv dical NAL 188 [facility] 2021-03-15 2021-03-15 Orders Doctor MONIE 1.2.840.114 [id number] Univers 00:00:00 00:00:00 Only Unassigned, JOSE 350.1.13.10 ity of [place] [facility] 4.2.7.2.686 Miguelito as [phone] [address] 2021-03-14 2021-03-14 Emergency X [facility] ERT [id number] Univers 08:16:00 09:57:00 KENYON clayton [facility] 2021-03-14 2021-03-14 Emergency [facility] 1.2.503.543 [id number] Univers 08:16:00 09:57:00 Kenyon AVALOS 350.1.13.10 i ty of [place] 4.2.7.2.[place] KNOB [id number] [address] 2021-03-14 2021-03-14 Emergency X [facility] ERT [id number] Univers 08:16:00 09:57:00 KENYON clayton [facility] 2021-03-09 2021-03-09 Emergency X [facility] ERT [id number] Univers 07:49:00 08:07:00 KENYON clayton [facility] 2021-03-09 2021-03-09 Emergency [facility] 1.2.775.270 [id number] Univers 07:49:00 08:07:00 Kenyon AVALOS 350.1.13.10 i ty of [place] G[place] [id number] [address] 2021-03-09 2021-03-09 Emergency X SUMIT, [facility] ERT [id number] Univers 07:49:00 08:07:00 KENYON kai [facility] 2021-03-09 2021-03-09 Telephone LamonteanaliralphADVANCED [facility] 1.2.840.114 [id number] Univers 00:00:00 00:00:00 Meliton AVALOS 350.1.13.10 i ty [facility] 4.2.7.2.[place] [phone] Nv sandieandrade TERENCE 044 [facility] 2021-02-27 2021-02-27 Outpatient R ELIAS [facility] [id number] Univers 11:20:00 11:20:00 MELITON forrest [facility] 2021-02-27 2021-02-27 [facility] [id number] Univers 11:20:00 11:20:00 MELITON clayton [facility] 2021-02-26 2021-02-26 Bioinformatics Associate 2, Adc Lab [facility] 1.2.840.114 [id number] Univers 14:19:34 14:23:46 Visit Dixon [place] 350.1.13.10 ity [place] [phone] Nv johanna smith 353 [facility] 2021-02-26 2021-02-26 Office Shu [facility] 1.2.840.114 [id number] Univers 11:17:44 12:04:38 Visit Dixon [place] [facility] 350.1.13.10 ity of [facility] 4.2.7.2.[place] CENTER AT [phone] Nv johanna LLANOS 092 [facility] 2021-02-26 2021-02-26 Outpatient R SHU [facility] [id number] Univers 11:00:00 12:04:38 RUIQMARÍA clayton [facility] 2021-02-26 2021-02-26 Outpatient R SHU [facility] [id number] Univers 11:00:00 11:00:00 RUIQING forrest [facility] 2021-02-26 2021-02-26 Orders Doctor LOMAX 1.2.840.114 [id number] Univers 00:00:00 00:00:00 Only Unassigned, JOSE 350.1.13.10 ity of [facility] 4.2.7.2.686 Miguelito as [id number] [address] 2021-02-23 2021-02-23 Outpatient Dana IRELAND [facility] [id number] Univers 10:00:00 10:00:00 RUIQING kai [facility] 2021-02-23 2021-02-23 Outpatient R SHU [facility] [id number] Univers 10:00:00 10:00:00 [facility] 2021-02-21 2021-02-21 Outpatient R ELIAS [facility] [id number] Univers 09:15:00 14:42:33 MELITON clayton [facility] 2021-02-21 2021-02-21 Bioinformatics Associate 2, Adc Lab [facility] 1.2.840.114 [id number] Univers 09:12:25 09:27:25 Visit Meliton So 350.1.13.10 ity [facility] 4[place]2.7.2.[place] Profess[place] [phone] [address] 2021-02-21 2021-02-21 Outpatient R ELIAS [facility] [id number] Univers 09:15:00 09:15:00 MELITON clayton [facility] 2021-01-01 2021-01-01 Outpatient [facility] [id number] 960 [place] 00:00:00 00:00:[address] 2020-12-19 2020-12-19 Outpatient R ELIAS [facility] [id number] Univers 16:20:00 16:20:00 MELITON clayton [facility] 2020-11-02 2020-11-02 Outpatient Dana MCKEON [facility] [id number] Univers 14:10:00 14:10:00 RENAE clayton [facility] 2020-09-19 2020-09-19 Outpatient MELISSA NEGRO [facility] [id number] Univers 13:40:00 13:40:00 MELISSA DAVIS [facility] 2020-09-07 2020-09-07 Outpatient R ELIAS [facility] [id number] Univers 15:20:00 15:20:00 MELITON kai [facility] 2020-06-20 2020-06-20 Emergency X , [facility] ERT [id number] Univers 09:52:00 11:02:00 PRIYA kai [facility] 2020-06-14 2020-06-14 Outpatient R CONSTANTIN CARTER [facility] [id number] Univers 14:30:00 14:30:00 [facility] 2020-06-06 2020-06-06 Emergency X YRISSUNNeena [facility] ERT [id number] Univers 17:41:00 19:56:00 MORALES [facility] 2020-05-23 2020-05-23 Emergency X SINGER [facility] ERT [id number] Univers 07:17:00 08:15:00 PRIYA kai [facility] 2020-05-18 2020-05-18 Outpatient R OSCAR, [facility] [id number] Univers 14:10:00 14:10:00 STEF [facility] 2020-01-20 2020-01-20 Outpatient R ELIAS [facility] [id number] Univers 09:00:00 09:00:00 MELITON kai [facility] 2020-01-20 2020-01-20 Outpatient R ELIAS [facility] [id number] Univers 08:40:00 08:40:00 MELITON kai [facility] 2019-12-24 2019-12-24 Outpatient R ELIAS [facility] [id number] Univers 08:00:00 08:00:00 MELITON kai [facility] 2019-11-26 2019-11-26 Outpatient R ELIAS [facility] [id number] Univers 14:00:00 14:00:00 MELITON kai [facility] 2019-10-20 2019-10-20 Outpatient R ELIAS [facility] [id number] [id number] Univers 09:20:00 09:20:00 MELITON clayton [facility] 2019-08-16 2019-08-16 Outpatient KITTY GAMBLE [facility] ALONZO [id number] [facility] 09:30:00 09:30:00 [facility] 2019-07-27 2019-07-27 Outpatient Dana SO [facility] [id number] Univers 16:00:00 16:00:00 MELITON [facility] Results Test Description Test Time Test Comments Results Result Comments Source COMP. METABOLIC PANEL (63982) 2021-05-15 19:03:22 Test Item Value Reference Range Interpretation Comme nts NA (test code = 5441082053) 138 mmol/L 135-145 K (test code = 1422237842) 4.5 mmol/L 3.5-5.0 CL (test code = 9474574178) 105 mmol/L 98-108 CO2 TOTAL (test code = 7912716724) 30 mmol/L 23-31 AGAP (test code = 8835255854) 2-16 BUN (test code = 8807483338) 12 mg/dL 7-23 GLUCOSE (test code = 2049082346) 87 mg/dL 70-110 CREATININE (test code = 1.00 mg/dL 0.60-1.25 8886413275) TOTAL BILI (test code = 0.6 mg/dL 0.1-1.3 5793145565) CALCIUM (test code = 9122466906) 7.9 mg/dL 8.6-10.6 L T PROTEIN (test code = 7636849160) 7.2 g/dL 6.3-8.2 ALBUMIN (test code = 8182111017) 4.1 g/dL 3.5-5.0 ALK PHOS (test code = 5228653274) 76 U/L 34-122 ALTv (test code = 1742-6) 24 U/L 5-50 AST(SGOT) (test code = 0296277773) 33 U/L 13-40 eGFR (test code = 8150893984) mL/min/1.73m2 PERNELL (test code = PERNELL) Association of Glomerular Filtration Rate (GFR) and Staging of Kidney Disease* + +-------- + ------+| GFR (mL/min/1.73 m2) ?| With Kidney Damage ?| ?Without Kidney Damage+ +-- + +| ?>90 ?| ?Stage one ?| ? Normal ?+ +------- + -------+| ?60-89 ?| ?Stage two ?| ? Decreased GFR ? + +-------- + ------+| ?30-59 ?| ?Stage three ?| ? Stage three ? + +-------- + ------+| ?15-29 ?| ?Stage four ? | ? Stage four ?+ +------- + -------+| ?<15 (or dialysis) ? ?| ?Stage five ? | ? Stage five ?+ +------- + -------+ *Each stage assumes the associated GFR level has been in effect for at least three months. ?Stages 1 to 5, with or without kidney disease, indicate chronic kidney disease. Notes: Determination of stages one and two (with eGFR >59mL/min/1.73 m2) requires estimation of kidney damage for at least three months as defined by structural or functional abnormalities of the kidney, manifested by either:Pathological abnormalities or Markers of kidney damage (including abnormalities in the composition of the blood or urine or abnormalities in imaging tests). Lab Interpretation (test code = Abnormal 91517-9) [facility] Center[facility] [id number] 19:02:41 Test Item Value Reference Range Interpretation Comments CK (test code = 6205562200) 367 U/L 33-194 H Lab Interpretation (test code = Abnormal 75438-9) [facility] Center[facility] WITH [id number] 18:45:39 Test Item Value Reference Range Interpretation Comments WBC (test code = See_Comment H [Automated 1926-2) message] The sy stem which generated this result transmitted reference range : 4.20 - 10.70 10*3/?L. The reference range was not used to interpret this result as normal/abnormal . RBC (test code = See_Comment [Automated 394-2) message] The sy stem which generated this result transmitted reference range : 4.26 - 5.52 10*6/?L. The reference range was not used to interpret this result as normal/abnormal . HGB (test code = 15.2 g/dL 12.2-16.4 718-7) HCT (test code = 44.5 % 38.4-49.3 4544-3) MCV (test code = 89.7 fL 81.7-95.6 787-2) MCH (test code = 30.6 pg 26.1-32.7 785-6) MCHC (test code = 34.2 g/dL 31.2-35.0 786-4) RDW-SD (test code = 44.1 fL 38.5-51.6 17110-4) RDW-CV (test code = 13.4 % 12.1-15.4 788-0) PLT (test code = See_Comment [Automated 777-3) message] The sy stem which generated this result transmitted reference range : 150 - 328 10*3/ ?L. The reference r steven was not used to interpret this result as normal/abnormal . MPV (test code = 8.8 fL 9.8-13.0 L 80924-0) NRBC/100 WBC (test See_Comment [Automat ed code = [id number]) message] The system which generated this result transmitted reference range : 0.0 - 10.0 /100 WBCs. The refer ence range was not u sed to interpret th is result as normal/abnormal . NRBC x10^3 (test code <0.01 See_Comment [Auto mated = [id number]) message] The s ystem which generated this result transmitted reference range : 10*3/?L. The reference range was not used to interpret this result as normal/abnormal . GRAN MAT (NEUT) % 62.8 % (test code = 770-8) IMM GRAN % (test code 0.40 % = [id number]) LYMPH % (test code = 28.1 % 736-9) MONO % (test code = 7.1 % 5905-5) EOS % (test code = 1.0 % 713-8) BASO % (test code = 0.6 % 706-2) GRAN MAT x10^3(ANC) 6.82 10*3/uL 1.99-6.95 (test code = [id number]) IMM GRAN x10^3 (test 0.04 10*3/uL 0.00-0.06 code = [id number]) LYMPH x10^3 (test code 3.05 10*3/uL 1.09-3.23 = 731-0) MONO x10^3 (test code 0.77 10*3/uL 0.36-1.02 = 742-7) EOS x10^3 (test code = 0.11 10*3/uL 0.06-0.53 711-2) BASO x10^3 (test code 0.06 10*3/uL 0.01-0.09 = [id number]) Lab Interpretation Abnormal (test code = 37554-4) [facility]"
[2022-09-04 18:34] LABS: Absolute Lymphocytes (CBC) 1.3 K/uL (0.7-4.9); Hematocrit 46.8 % (39.6-49.0); Lymphocytes % 12.2 % (15.3-44.8); MCV 90.1 fL (80-100); MPV 6.8 fL (7.6-11.3)
[2022-09-04] MEDS ORDERED: LEVETIRACETAM 500 MG/5 ML VIAL IV ONE (18:34)
[2022-09-04] MEDS ORDERED: NA CHLORIDE 0.9% 100 ML ONE (18:34)
[2022-09-04 18:38] LABS: Protime INR 1.08
[2022-09-04 19:02] LABS: Albumin 4.2 g/dL (3.4-5.0); Bilirubin Direct 0.1 mg/dL (0-0.2); Bilirubin Total 0.4 mg/dL (0.2-1.0); Magnesium 1.8 mg/dL (1.6-2.4); Potassium 4.1 mEq/L (3.5-5.1); Protein, Total 8.4 g/dL (6.4-8.2); Thyroid Stimulating Hormone 0.006 uIU/mL (0.358-3.740); Troponin High Sensitivity 52.1 pg/mL (<58.9)
--- NOTE | 2022-09-04 19:05 | RAD REPORT ---
EXAM DESCRIPTION: Saleem Single View09/04/2022 6:33 pm CLINICAL HISTORY: COUGH COMPARISON: No comparisons TECHNIQUE: Portable AP view of the chest. FINDINGS: The lungs are clear. No pneumothorax or effusion. The cardiomediastinal contours are unrem arkable. IMPRESSION: No acute cardiopulmonary process.
--- NOTE | 2022-09-04 19:11 | RAD REPORT ---
EXAM DESCRIPTION: CT - Head Brain Wo Cont - 09/04/2022 6:49 pm CLINICAL HISTORY: CONFUSED COMPARISON: No comparisons TECHNIQUE: Noncontrast head CT images ad were obtained without IV contrast. Multiplanar reformats we re generated and reviewed. All CT scans are performed using dose optimization technique as appropriate and may include automated exposure control or mA/KV adjustment according to patient size. FINDINGS: No intracranial hemorrhage, mass, or edema. Midline structures are unremarkable. Normal ventricular caliber for age. Jenkins-white matter differentiation is preserved, without evidence of acute infarct. No abnormal extra- axial fluid collections. Mastoid air cells and visualized portions of the paranasal sinuses are clear. No acute bony findings. IMPRESSION: No evidence of an acute intracranial process.
--- NOTE | 2022-09-04 20:15 | ER ---
Nurse's Notes [facility] Name: Steve Land III Age: 57 yrs Sex: Male : 1965 Arrival Date: 09/04/2022 Time: 17:39 Bed 16 Private MD: Diagnosis: Epileptic seizures related to external causes Presentation: 09/04 17:48 Chief complaint: Patient's son or daughter states: the patient had a reported seizure ap3 today at approx 2pm at the bank. patient did not hit his head, as the reported seizure occurred while the patient was sitting in a chair. however the daughter reports the patient has been very forgetful all day, and that he can't recall going into work this morning. patient states he remembers the events of yesterday, and the last thing he remembers was laying down last night for bed at approx 10pm. Coronavirus screen: At this time, the client does not indicate any symptoms associated with coronavirus-19. Ebola Screen: No symptoms or risks identified at this time. Initial Sepsis Screen: Does the patient meet any 2 criteria? No. Patient's initial sepsis screen is negative. Does the patient have a suspected source of infection? No. Patient's initial sepsis screen is negative. Risk Assessment: Do you want to hurt yourself or someone else? Patient reports no desire to harm self or others. 17:48 Method Of Arrival: Ambulatory ap3 17:48 Acuity: [place] 2 ap3 19:20 Onset of symptoms was September 04, 2022. ha1 Triage Assessment: 17:52 General: Appears in no apparent distress. Behavior is calm, cooperative, appropriate ap3 for age. Pain: Denies pain. Neuro: Level of Consciousness is awake, alert, obeys commands, Oriented to person, place, patient states he doesn't pay attention to dates to keep up with dates or politics to know who the president is. Neuro: Reports not remembering much of what has happened today. Seizure activity reported prior to arrival. Cardiovascular: Patient's skin is warm and dry. Respiratory: Airway is patent Respiratory effort is even, unlabored, Respiratory pattern is regular, symmetrical. Historical: - Allergies: 17:51 No Known Allergies; ap3 - Home Meds: 17:51 Keppra Oral [Active]; ap3 18:04 levothyroxine oral [Active]; ap3 - PMHx: 17:51 Seizure; Hypothyroidism; ap3 - Immunization history:: Client reports having NOT received the Covid vaccine. - Social history:: Smoking status: Patient denies any tobacco usage or history of. Patient uses street drugs, marijuana. Screenin:54 Abuse screen: Denies threats or abuse. Nutritional screening: No deficits noted. ap3 Tuberculosis screening: No symptoms or risk factors identified. Assessment: 18:15 General: Appears in no apparent distress. comfortable, Behavior is calm, cooperative, kc6 appropriate for age. Pain: Denies pain. Neuro: Kam Agitation-Sedation Scale (RASS): 0 - Alert and Calm Level of Consciousness is awake, alert, obeys commands, Oriented to person, place, time, situation, Appropriate for age. Cardiovascular: Capillary refill < 3 seconds. Respiratory: Airway is patent Trachea midline Respiratory effort is even, unlabored, Respiratory pattern is regular, symmetrical. GI: No signs and/or symptoms were reported involving the gastrointestinal system. : No signs and/or symptoms were reported regarding the genitourinary system. EENT: No signs and/or symptoms were reported regarding the EENT system. Derm: No signs and/or symptoms reported regarding the dermatologic system. Skin is intact, Skin is pink, warm \T\ dry. Musculoskeletal: No signs and/or symptoms reported regarding the musculoskeletal system. Circulation, motion, and sensation intact. Capillary refill < 3 seconds, Range of motion: intact in all extremities. 19:20 General: Appears comfortable, Behavior is calm, cooperative. Pain: Denies pain. Neuro: ha1 Level of Consciousness is awake, alert, obeys commands, Oriented to person, place, situation. Neuro: Reports having a seizure early today.. Cardiovascular: Capillary refill < 3 seconds Patient's skin is warm and dry. Respiratory: Airway is patent Respiratory effort is even, unlabored, Respiratory pattern is regular, symmetrical. Respiratory: Airway is patent Trachea midline Respiratory effort is even, unlabored, Respiratory pattern is regular, symmetrical. GI: Abdomen is flat, non-distended, Bowel sounds present X 4 quads. : No signs and/or symptoms were reported regarding the genitourinary system. Derm: Skin is intact, Skin is moist, Skin is normal. Musculoskeletal: Circulation, motion, and sensation intact. Range of motion: intact in all extremities. 20:20 Reassessment: Patient and/or family updated on plan of care and expected duration. Pain ha1 level reassessed. Patient is alert, oriented x 3, equal unlabored respirations, skin warm/dry/pink. Vital Signs: 17:48 BP 185 / 90; Pulse 65; Resp 17; Temp 97.7; Pulse Ox 100% ; Weight 86.18 kg; Height 5 ap3 ft. 11 in. ; 17:55 BP 157 / 89; Pulse 64; Pulse Ox 99% on R/A; ap3 19:20 BP 136 / 53; Pulse 60; Resp 18 S; Pulse Ox 100% on R/A; ha1 20:20 BP 140 / 55; Pulse 65; Resp 15 S; Pulse Ox 100% on R/A; ha1 17:48 Body Mass Index 26.50 (86.18 kg, 180.34 cm) ap3 Azalia Coma Score: 17:52 Eye Response: spontaneous(4). Motor Response: obeys commands(6). Verbal Response: ap3 oriented(5). Total: 15. ED Course: 17:43 Patient arrived in ED. rg4 17:51 Triage completed. ap3 17:54 Arm band placed on right wrist. ap3 18:00 Joanne Phoenix FNP-C is [facility]. kb 18:00 Greg Mendez MD is Attending Physician. kb 18:11 Megan Delgadillo, LACHO is Primary Nurse. kc6 18:15 Patient has correct armband on for positive identification. Bed in low position. Call kc6 light in reach. Side rails up X 1. Adult w/ patient. 18:15 Seizure precautions initiated. kc6 18:26 Inserted saline lock: 20 gauge in left antecubital area, using aseptic technique. Blood kc6 collected. 18:35 Chest Single View XRAY In Process Unspecified. EDMS 18:50 CT Head Brain wo Cont In Process Unspecified. EDMS 21:03 No provider procedures requiring assistance completed. IV discontinued, intact, ha1 bleeding controlled, No redness/swelling at site. Pressure dressing applied. Administered Medications: 18:41 Drug: Keppra IV 1000 mg Route: IV; Rate: calculated rate; Site: left antecubital; kc6 Medication: 21:03 VIS not applicable for this client. ha1 Outcome: 20:14 Discharge ordered by MD. kb 21:03 Discharged to home ambulatory, with family. ha1 21:03 Condition: stable 21:03 Discharge instructions given to patient, family, Instructed on discharge instructions, follow up and referral plans. Demonstrated understanding of instructions, follow-up care. 21:03 Patient left the ED. ha1 Signatures: Dispatcher [employer] EDMS Joanne Phoenix, CHANNING LITTLE-Cici Camejo rg4 Ximena Peters RN RN ap3 Sydnee Alexandra RN RN ha1 Megan Delgadillo RN RN kc6
--- NOTE | 2022-09-04 20:15 | EDPHYS ---
Physician Documentation [facility] Name: Steve Land III Age: 57 yrs Sex: Male : 1965 Arrival Date: 09/04/2022 Time: 17:39 Bed 16 Private MD: ED Physician Greg Mendez HPI: 09/04 20:10 This 57 yrs old Male presents to ER via Ambulatory with complaints of Probable kb Seizure, Confusion. 20:10 The patient presents after having a single isolated seizure. Character of seizure(s): kb Motor activity: generalized, shaking all over. Seizure onset: today. Context: the seizure(s) was witnessed, by family, daughter, occurred the bank;, occurred while the patient was sitting, Contributing factors: may have missed keppra. Seizure Hx: Original onset: longstanding. Associated injury: The patient did not suffer any apparent associated injury. Current symptoms: Currently, the patient is not experiencing any symptoms, the patient feels back to baseline, no decreased level of consciousness, no confusion, no dysphasia, no headache, no paralysis, no visual changes. The patient has experienced similar episodes in the past. The patient has not recently seen a physician. Daughter states patient had a brief seizure while at the [employer] earlier today. States she brought him in because he has not been able to remember the events of today. States he regularly has seizures but the forgetfulness is only happened a couple times in the past.. Historical: - Allergies: 17:51 No Known Allergies; ap3 - Home Meds: 17:51 Keppra Oral [Active]; ap3 18:04 levothyroxine oral [Active]; ap3 - PMHx: 17:51 Seizure; Hypothyroidism; ap3 - Immunization history:: Client reports having NOT received the Covid vaccine. - Social history:: Smoking status: Patient denies any tobacco usage or history of. Patient uses street drugs, marijuana. ROS: 20:07 Constitutional: Negative for fever, chills, and weight loss. kb 20:07 Neuro: Positive for seizure activity, forgetfulness. 20:07 All other systems are negative. Exam: 20:07 Constitutional: This is a well developed, well nourished patient who is awake, alert, kb and in no acute distress. Head/Face: Normocephalic, atraumatic. ENT: Moist Mucous membranes Cardiovascular: Regular rate and rhythm with a normal S1 and S2. No gallops, murmurs, or rubs. No pulse deficits. Respiratory: Respirations even and unlabored. No increased work of breathing. Talking in full sentences Abdomen/GI: Soft, non-tender. No distention Skin: Warm, dry with normal turgor. Normal color. MS/ Extremity: Pulses equal, no cyanosis. Neurovascular intact. Full, normal range of motion. Neuro: Awake and alert, GCS 15, oriented to person, place, time, and situation. Moves all extremities. Normal gait. 20:07 ECG was reviewed by the Attending Physician. Vital Signs: 17:48 BP 185 / 90; Pulse 65; Resp 17; Temp 97.7; Pulse Ox 100% ; Weight 86.18 kg; Height 5 ap3 ft. 11 in. ; 17:55 BP 157 / 89; Pulse 64; Pulse Ox 99% on R/A; ap3 19:20 BP 136 / 53; Pulse 60; Resp 18 S; Pulse Ox 100% on R/A; ha1 20:20 BP 140 / 55; Pulse 65; Resp 15 S; Pulse Ox 100% on R/A; ha1 17:48 Body Mass Index 26.50 (86.18 kg, 180.34 cm) ap3 Azalia Coma Score: 17:52 Eye Response: spontaneous(4). Motor Response: obeys commands(6). Verbal Response: ap3 oriented(5). Total: 15. MDM: 18:00 Patient medically screened. kb 20:09 Differential diagnosis: cerebral vascular accident, seizure. Data reviewed: vital kb signs, nurses notes. Management of patient was discussed with the following: Dr Mendez. Historians other than the Patient: Daughter/Son: daughter. Counseling: I had a detailed discussion with the patient and/or guardian regarding: the historical points, exam findings, and any diagnostic results supporting the discharge/admit diagnosis, lab results, radiology results, the need for outpatient follow up, a neurologist, to return to the emergency department if symptoms worsen or persist or if there are any questions or concerns that arise at home. 20:14 Consideration of Admission/Observation Escalation of care including kb admission/observation considered. admission considered for seizures and confusion. Pt prefers to go home and will follow up with neurology. 09/04 18:09 Order name: Basic Metabolic Panel; Complete Time: 19:12 kb 09/04 18:09 Order name: CBC with Diff; Complete Time: 18:54 kb 09/04 18:09 Order name: Hepatic Function; Complete Time: 19:12 kb 09/04 18:09 Order name: Magnesium; Complete Time: 19:12 kb 09/04 18:09 Order name: Protime (+inr); Complete Time: 18:40 kb 09/04 18:09 Order name: Ptt, Activated; Complete Time: 18:40 kb 09/04 18:09 Order name: Troponin High Sensitivity; Complete Time: 19:12 kb 09/04 18:09 Order name: TSH; Complete Time: 19:12 kb 09/04 18:09 Order name: CT Head Brain wo Cont; Complete Time: 19:12 kb 09/04 18:09 Order name: Chest Single View XRAY; Complete Time: 19:12 kb 09/04 18:09 Order name: EKG; Complete Time: 18:10 kb 09/04 18:09 Order name: Cardiac monitoring; Complete Time: 18:26 kb 09/04 18:09 Order name: EKG - Nurse/Tech; Complete Time: 18:41 kb 09/04 18:09 Order name: IV Saline Lock; Complete Time: 18:26 kb 09/04 18:09 Order name: Labs collected and sent; Complete Time: 18:26 kb 09/04 18:09 Order name: NPO; Complete Time: 18:26 kb 09/04 18:09 Order name: O2 Per Protocol; Complete Time: 18:26 kb 09/04 18:09 Order name: O2 Sat Monitoring; Complete Time: 18:26 kb EC:07 Rate is 61 beats/min. Rhythm is regular. QRS [place] is Normal. [place] interval is normal at kb 136 msec. QRS interval is normal at 96 msec. QT interval is normal at 398 msec. Administered Medications: 18:41 Drug: Keppra IV 1000 mg Route: IV; Rate: calculated rate; Site: left antecubital; kc6 Disposition Summary: 09/04/22 20:14 Discharge Ordered Location: Home kb Condition: Stable kb Diagnosis - Epileptic seizures related to external causes kb Followup: kb - With: Emergency Department - When: As needed - Reason: Worsening of condition Followup: kb - With: Private Physician - When: 2 - 3 days - Reason: Recheck today's complaints, Continuance of care, Re-evaluation by your physician Discharge Instructions: - Discharge Summary Sheet kb - Seizure, Adult, [id number] kb Forms: - Medication Reconciliation Form kb - Thank You Letter kb - Antibiotic Education kb - Prescription Opioid Use kb Addendum: 09/09/2022 06:59 Co-signature as Attending Physician, Greg Mendez MD I reviewed the patient's care r n provided by the Advanced Practice Provider and agree with the diagnosis and treatment plan. Signatures: Dispatcher [employer] EDJoanne Ellison, TRAPEZE ARTIST-C TRAPEZE ARTIST-Ckb Greg Mendez MD MD rn Ximena Peters RN RN ap3 Megan Delgadillo RN RN kc6
[2022-09-04 21:21] VITALS: TEMP 97.7; O2SAT 100
[2022-09-04 21:24] VITALS: BP 140/55
--- NOTE | 2022-09-09 12:45 | EKG ---
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
== END 2022-09-04 21:03 | disposition home or self-care (01) ==
LOC: ER 17:39
DX: G40.509 Epileptic seizures related to external causes, not intractable, without status epilepticus (principal); E03.9 Hypothyroidism, unspecified
CPT/HCPCS: 85025; 80048; 36415; 83735; 85610; 80076; 85730; 84443; 84484; 70450; 71045; J1953; 93005; 96374; 99284